=== PATIENT | female | born 1995 | race African-American/Black ===

== ENCOUNTER 2017-02-26 22:07 | Emergency (ER) | payer MEDICAID ==
[2017-02-26] MEDS ORDERED: ACETAMINOPHEN 325 MG TABLET PO ONE (23:21)
[2017-02-26] MEDS ORDERED: MAGNESIUM OXIDE 400 MG TABLET PO ONE (23:21)
--- NOTE | 2017-02-26 23:30 | ER Document Report ---
HPI - HPI Pain Level: 5 Context: Patient is a 21 year old female who is 10 weeks presents with migraine headache since this afternoon. She states she has not taken anything for her migraine, denies light/sound sensitivity, n/v. Toelrating PO. H/o migraines previously on maxalt but stopped following with her neurologist. Denies any trauma or fall - REPRODUCTIVE Reproductive: DENIES: : Past Medical History - Social History Smoking Status: Never Smoker Chew tobacco use (# tins/day): No Frequency of alcohol use: None Drug Abuse: None Family History: CAD, CVA, DM, Hyperlipidemia, Hypertension, Malignancy Patient has suicidal ideation: No Patient has homicidal ideation: No - Past Medical History Cardiac Medical History: Reports: Hx Hypercholesterolemia Pulmonary Medical History: Reports: Hx Asthma, Hx Bronchitis, Hx Pneumonia Neurological Medical History: Reports: Hx Migraine Renal/ Medical History: Denies: Hx Peritoneal Dialysis Past Surgical History: Reports: Hx Tonsillectomy - Immunizations Immunizations up to date: Yes Hx Diphtheria, Pertussis, Tetanus Vaccination: Yes Vertical Provider Document - CONSTITUTIONAL Notes: PHYSICAL EXAM GENERAL: Alert, interacts well. HEAD: Normocephalic, atraumatic. EYES: Pupils equal, round, and reactive to light. Extraocular movements intact. ENT: Oral mucosa moist, tongue midline. NECK: Full range of motion. Supple. Trachea midline. LUNGS: Clear to auscultation bilaterally, no wheezes, rales, or rhonchi. No respiratory distress. HEART: Regular rate and rhythm. No murmurs, gallops, or rubs. EXTREMITIES: Moves all 4 extremities spontaneously. No edema, radial and dorsalis pedis pulses 2/4 bilaterally. No cyanosis. NEUROLOGICAL: Alert and oriented x4. Normal speech. PSYCH: Normal affect, normal mood. SKIN: Warm, dry, normal turgor. No rashes or lesions noted. - INFECTION CONTROL TRAVEL OUTSIDE OF THE [place] IN LAST 30 DAYS: No - RESPIRATORY O2 Sat by Pulse Oximetry: 99 Course - Re-evaluation Re-evalutation: 02/27/17 00:21 Patient does not have any focal neurologic deficits, nuchal rigidity, vital signs are within normal limits no papilledema. Patient is otherwise no acute distress and hemodynamically stable. Low index for suspicion of acute subarachnoid hemorrhage, meningitis or mass. Low suspicion for acute life- threatening etiology with intact neuro exam therefore no additional imaging or laboratory testing is indicated. Will medicate patient with Tylenol. 02/27/17 01:05 Patient states that her headache does not feel much better. Requesting something stronger. Discussed with patient the classes of Fioricet and codeine. Patient asking for Fioricet. 02/27/17 01:20 Patient at this time stating that she wants to go home. Upon reexamination she stating that she feels fine. At this time she is declining to take any prescriptions home with her since she will be limited to taking them 4-5 times a month based on the class. Will discharge patient home with strict follow-up with PCP for blood pressure check within the next week. - Vital Signs Vital signs: Temp Pulse Resp BP Pulse Ox 98.4 F 97 18 141/78 H 99 02/26/17 22:12 02/26/17 22:12 02/26/17 22:12 02/26/17 22:12 02/26/17 22:12 Discharge - Discharge Clinical Impression: Headache Qualifiers: Headache type: unspecified Headache chronicity pattern: acute headache Intractability: not intractable Qualified Code(s): R51 - Headache Condition: Good Disposition: HOME, SELF-CARE Additional Instructions: HEADACHE: The physician does not feel that the headache you are experiencing has a serious underlying cause. Most headaches are due to emotional stress, with resultant muscle tension (tension headache). Occasionally, headaches are secondary to changes in the blood vessels of the scalp (vascular headache and migraine headache). Sometimes, a headache is the first symptom of another developing illness, such as a viral infection. You have no evidence of stroke, bleeding, meningitis, or other serious cause of your headache. The treatment of headaches varies with the severity and cause of the pain. Not all headaches need pain shots. In fact, there is evidence that using narcotics for headaches may make them worse in the long run. The physician will determine the therapy that's in your best interest. If you develop a fever, if the headache is different from any you've previously experienced, or if the headache progressively worsens, then call your physician at once or go to the emergency room. FOLLOW-UP CARE: If you have been referred to a physician for follow-up care, call the physician s office for an appointment as you were instructed or within the next two days. If you experience worsening or a significant change in your symptoms, notify the physician immediately or return to the Emergency Department at any time for re-evaluation. Referrals: KEVIN SALDIVAR MD [[facility]] - Follow up in 3-5 days
[2017-02-27] MEDS ORDERED: BUTALB/ACETAMINOPHEN/CAFFEINE 1 TAB EACH PO ONE (00:20)
[2017-02-27 01:21] VITALS: BP 129/88
== END 2017-02-27 01:11 | disposition home or self-care (01) ==
LOC: ER 22:07
DX: O99.351 Diseases of the nervous system complicating pregnancy, first trimester (principal); G43.909 Migraine, unspecified, not intractable, without status migrainosus; O99.511 Diseases of the respiratory system complicating pregnancy, first trimester; J45.909 Unspecified asthma, uncomplicated; Z3A.10 10 weeks gestation of pregnancy
CPT/HCPCS: 99283; J3490 ×3

== ENCOUNTER 2017-03-15 22:20 | Emergency (ER) | payer MEDICAID ==
[2017-03-15] MEDS ORDERED: METOCLOPRAMIDE HCL 10 MG TABLET PO ONE (23:50)
[2017-03-15] MEDS ORDERED: ACETAMINOPHEN 325 MG TABLET PO ONE (23:50)
[2017-03-15] MEDS ORDERED: LORATADINE 10 MG TABLET PO ONE (23:50)
[2017-03-16 00:30] LABS: AMORPHOUS SEDIMENT,URINE TRACE /HPF; BILIRUBIN,URINE NEGATIVE (NEGATIVE); GLUCOSE, URINE NEGATIVE (NEGATIVE); KETONES,URINE 20 mg/dL (NEGATIVE); LEUKOCYTE ESTERASE,URINE NEGATIVE (NEGATIVE); NITRITE,URINE NEGATIVE (NEGATIVE); PROTEIN,URINE NEGATIVE (NEGATIVE); URINE SPECIFIC GRAVITY 1.023; UROBILINOGEN,URINE NEGATIVE mg/dL (<2.0)
[2017-03-16 00:31] LABS: APPEARANCE,URINE CLEAR
--- NOTE | 2017-03-16 00:40 | ER Document Report ---
ED General - General Chief Complaint: Dizziness Stated Complaint: BLOOD PRESSURE PROBLEM Time Seen by Provider: 03/15/17 23:38 Mode of Arrival: Ambulatory Information source: Patient Notes: 21-year-old female presents to ED for high blood pressure at home and she is 13 weeks. Blood pressure is 128/68 emergency room. Patient complaining of dizziness nausea and vomiting. She also has congestion. Patient states she had not had any nausea for the least a week and now she was nauseated today. TRAVEL OUTSIDE OF THE [place] IN LAST 30 DAYS: No - HPI Onset: This morning Onset/Duration: Intermittent Quality of pain: No pain Severity: None Pain Level: Denies Associated symptoms: Nausea, Vomiting, Other - Dizziness and elevated blood pressure at home blood pressure is normal in the emergency room Exacerbated by: Denies Relieved by: Denies Similar symptoms previously: Yes Recently seen / treated by doctor: Yes - Related Data Allergies/Adverse Reactions: amoxicillin trihydrate [From Augmentin] Allergy (Verified 03/15/17 22:57) Potassium Clavulanate * [From Augmentin] Allergy (Verified 03/15/17 22:57) Home Medications: Current Home Medications Prenat 115/Iron Fum/Folic/Dss [ 19 Tablet] 1 each PO DAILY 03/15/17 [ History] Past Medical History - General Information source: Patient - Social History Smoking Status: Never Smoker Cigarette use (# per day): No Chew tobacco use (# tins/day): No Smoking Education Provided: No Lives with: Family Family History: CAD, CVA, DM, Hyperlipidemia, Hypertension, Malignancy Patient has suicidal ideation: No Patient has homicidal ideation: No - Past Medical History Cardiac Medical History: Reports: Hx Hypercholesterolemia Pulmonary Medical History: Reports: Hx Asthma, Hx Bronchitis, Hx Pneumonia Neurological Medical History: Reports: Hx Migraine Endocrine Medical History: Reports: None Renal/ Medical History: Reports: None Malignancy Medical History: Reports: None GI Medical History: Reports: None Musculoskeltal Medical History: Reports None Skin Medical History: Reports None Psychiatric Medical History: Reports: None Traumatic Medical History: Reports: None Infectious Medical History: Reports: None Past Surgical History: Reports: Hx Adenoidectomy, Hx Tonsillectomy - Immunizations Immunizations up to date: Yes Hx Diphtheria, Pertussis, Tetanus Vaccination: Yes Review of Systems - Review of Systems Constitutional: Recent illness EENT: Nose discharge Cardiovascular: Dizziness, Other - Patient states that she had elevated blood pressure at home Respiratory: No symptoms reported Gastrointestinal: Nausea, Vomiting Genitourinary: No symptoms reported Female Genitourinary: Musculoskeletal: No symptoms reported Skin: No symptoms reported Hematologic/Lymphatic: No symptoms reported Neurological/Psychological: No symptoms reported -: Yes All other systems reviewed and negative Physical Exam - Vital signs Vitals: Temp Pulse Resp BP Pulse Ox 98.6 F 85 16 128/68 H 99 03/15/17 22:59 03/15/17 22:59 03/15/17 22:59 03/15/17 22:59 03/15/17 22:59 Interpretation: Normal - General General appearance: Appears well, Alert - HEENT Head: Normocephalic, Atraumatic Eyes: Normal Pupils: PERRL Ears: Normal External canal: Normal Tympanic membrane: Normal Sinus: Normal Nasal: Swelling, Clear rhinorrhea Mouth/Lips: Normal Pharynx: Post nasal drainage Neck: Normal - Respiratory Respiratory status: No respiratory distress Chest status: Nontender Breath sounds: Normal. No: Rales, Rhonchi, Stridor, Wheezing Chest palpation: Normal - Cardiovascular Rhythm: Regular Heart sounds: Normal auscultation Murmur: No - Abdominal Inspection: Gravid female Distension: No distension Bowel sounds: Normal Tenderness: Nontender Organomegaly: No organomegaly - Back Back: Normal, Nontender - Extremities General upper extremity: Normal inspection, Nontender, Normal color, Normal ROM , Normal temperature General lower extremity: Normal inspection, Nontender, Normal color, Normal ROM , Normal temperature, Normal weight bearing. No: Rhona's sign - Neurological Neuro grossly intact: Yes Cognition: Normal Orientation: AAOx4 [place] Coma Scale Eye Opening: Spontaneous [place] Coma Scale Verbal: Oriented [place] Coma Scale Motor: Obeys Commands [place] Coma Scale Total: 15 Speech: Normal Motor strength normal: LUE, RUE, LLE, RLE Sensory: Normal - Psychological Associated symptoms: Normal affect, Normal mood - Skin Skin Temperature: Warm Skin Moisture: Dry Skin Color: Normal Course - Re-evaluation Re-evalutation: 03/16/17 01:07 Patient treated with Claritin Tylenol and Reglan for her cough and cold symptoms and nausea and vomiting with . Patient was given instructions concerning what she can and cannot take for a cold while . She is given a prescription for Reglan for her nausea during . Patient encouraged to increase her fluid intake and to follow-up with her OB/ REMEDIATION PROJECT ENGINEER by telephone on Saturday to schedule a follow-up appointment. - Vital Signs Vital signs: Temp Pulse Resp BP Pulse Ox 98.5 F 84 20 116/65 99 03/16/17 00:45 03/16/17 00:45 03/16/17 00:45 03/16/17 00:45 03/16/17 00:45 - Laboratory Laboratory results interpreted by me: 03/16/17 00:06 Urine Ketones 20 H Discharge - Discharge Clinical Impression: Nausea/vomiting in URI (upper respiratory infection) Qualifiers: URI type: unspecified URI Qualified Code(s): J06.9 - Acute upper respiratory infection, unspecified Condition: Stable Disposition: HOME, SELF-CARE Additional Instructions: UPPER RESPIRATORY ILLNESS: You have a viral infection of the respiratory passages -- a "cold." This common infection causes nasal congestion, drainage, and often sore throat and cough. It is highly contagious. The disease usually lasts about 10 to 14 days. There is no "cure" for the viral infection -- it must run its course. If there is a complication, such as bacterial infection in the nose, sinuses, middle ear, or bronchial tubes, antibiotics may be required. The antibiotics won't affect the virus. Drink plenty of fluids. A humidifier may help. An expectorant medication or decongestant may make you more comfortable. Use acetaminophen or ibuprofen for fever or aches. See the doctor if fever persists over two days, if there is any significant worsening of your symptoms, or if you simply fail to improve as expected. The only cold medicine she can take in are Benadryl or Claritin and Tylenol. Please use saline nasal spray to your nose to help remove the drainage. You can use Reglan for your nausea during . You were given a dose of Claritin Tylenol and Reglan in the emergency room for your symptoms. Your blood pressure is not concerning at this time. Your urine was clean but a little dehydrated you need to drink more water. Please call your DATA REPORTING ANALYST on Saturday to schedule a follow-up visit. Reglan (Metoclopramide) Reglan has been prescribed. This medicine affects the stomach and intestines. It can be used to treat nausea and vomiting, to prevent reflux of stomach acid up into the esophagus, or to increase the contractions of the stomach and intestines. It is often prescribed for esophagitis, and for paralysis of the stomach in diabetics. Reglan can cause either mild restlessness or drowsiness. You should contact the doctor at once if you become extremely restless, anxious, or cannot sleep, or if you develop uncontrollable motions of the lips, tongue, or jaw. Do not take alcohol with this medicine. Do not drive or operate machinery until you have been taking this medicine long enough to know how it affects you. Call the doctor if you develop abdominal pains, lightheadedness, black stool, or blood in the stool or vomitus. USE OF ACETAMINOPHEN (Tylenol): Acetaminophen may be taken for pain relief or fever control. It's much safer than aspirin, offering a wider range of "safe" dosages. It is safe during . Some brand names are Tylenol, Panadol, Datril, Anacin 3, Tempra, and Liquiprin. Acetaminophen can be repeated every four hours. The following are maximum recommended dosages: >89 pounds or adults 650 mg to 900 mg Acetaminophen can be repeated every four hours. Maximum dose not to exceed 4000 mg a day. FOLLOW-UP CARE: If you have been referred to a physician for follow-up care, call the physician s office for an appointment as you were instructed or within the next two days. If you experience worsening or a significant change in your symptoms, notify the physician immediately or return to the Emergency Department at any time for re-evaluation. Prescriptions: Metoclopramide HCl [Reglan 10 mg Tablet] 10 mg PO Q6HP PRN #20 tablet PRN Reason:
[2017-03-16 00:49] VITALS: BP 116/65
== END 2017-03-16 00:48 | disposition home or self-care (01) ==
LOC: ER 22:20
DX: O21.9 Vomiting of pregnancy, unspecified (principal); R42 Dizziness and giddiness; J06.9 Acute upper respiratory infection, unspecified; R03.0 Elevated blood-pressure reading, without diagnosis of hypertension; Z3A.13 13 weeks gestation of pregnancy; Z88.0 Allergy status to penicillin
CPT/HCPCS: 99284; 81001; J3490 ×3

== ENCOUNTER 2017-05-06 16:40 | Emergency (ER) | payer MEDICAID ==
[2017-05-06 17:01] VITALS: BP 131/63
[2017-05-06] MEDS ORDERED: ONDANSETRON 4 MG TAB.RAPDIS PO ONE (17:26)
--- NOTE | 2017-05-06 17:27 | ER Document Report ---
ED Medical Screen (RME) - General Chief Complaint: Abdominal Pain Stated Complaint: STOMACH PAIN Time Seen by Provider: 05/06/17 17:22 Notes: 21-year-old female patient is 20 weeks . She reports onset about 1230 day of nausea and vomited up all her lunch. She also reports onset of pain across the lower half of her abdomen. She states she feels the need to have bowel movements but when she tries very little to nothing will come out. She does have an appointment with her ELECTROTYPER doctors at [facility] tomorrow. I have greeted and performed a rapid initial assessment of this patient. A comprehensive ED assessment and evaluation of the patient, analysis of test results and completion of the medical decision making process will be conducted by additional ED providers. TRAVEL OUTSIDE OF THE [place] IN LAST 30 DAYS: No - Related Data Allergies/Adverse Reactions: amoxicillin trihydrate [From Augmentin] Allergy (Verified 05/06/17 17:14) Potassium Clavulanate * [From Augmentin] Allergy (Verified 05/06/17 17:14) Past Medical History - Social History Chew tobacco use (# tins/day): No Frequency of alcohol use: None Drug Abuse: None - Past Medical History Cardiac Medical History: Reports: Hx Hypercholesterolemia Pulmonary Medical History: Reports: Hx Asthma, Hx Bronchitis, Hx Pneumonia Neurological Medical History: Reports: Hx Migraine Renal/ Medical History: Denies: Hx Peritoneal Dialysis Past Surgical History: Reports: Hx Adenoidectomy, Hx Tonsillectomy - Immunizations Immunizations up to date: Yes Hx Diphtheria, Pertussis, Tetanus Vaccination: Yes Physical Exam - Vital signs Vitals: Temp Pulse Resp BP Pulse Ox 99.2 F 84 16 131/63 H 100 05/06/17 17:00 05/06/17 17:00 05/06/17 17:00 05/06/17 17:00 05/06/17 17:00 Course - Vital Signs Vital signs: Temp Pulse Resp BP Pulse Ox 99.2 F 84 16 131/63 H 100 05/06/17 17:00 05/06/17 17:00 05/06/17 17:00 05/06/17 17:00 05/06/17 17:00
[2017-05-06 18:14] LABS: ABSOLUTE EOSINOPHILS # (AUTO) 0.3 10^3/uL (0.0-0.6); ABSOLUTE LYMPHOCYTES (AUTO) 1.8 10^3/uL (0.5-4.7); ABSOLUTE MONOCYTES (AUTO) 0.7 10^3/uL (0.1-1.4); ABSOLUTE NEUT (AUTO) 7.4 10^3/uL (1.7-8.2); AMORPHOUS SEDIMENT,URINE TRACE /HPF; APPEARANCE,URINE CLOUDY; BASOPHILS % (AUTO) 0.4 % (0-2); BILIRUBIN,URINE NEGATIVE (NEGATIVE); COLOR,URINE YELLOW; EOSINOPHILS % (AUTO) 2.9 % (0-6); GLUCOSE, URINE NEGATIVE (NEGATIVE); HEMOGLOBIN 13.2 g/dL (12.0-15.5); KETONES,URINE 20 mg/dL (NEGATIVE); LEUKOCYTE ESTERASE,URINE NEGATIVE (NEGATIVE); LYMPHOCYTES % (AUTO) 17.6 % (13-45); MEAN CORPUSCULAR HEMOGLOBIN 29.8 pg (27.0-33.4); MEAN CORPUSCULAR HGB CONC 33.8 g/dL (32.0-36.0); MEAN CORPUSCULAR VOLUME 88 fl (80-97); NITRITE,URINE NEGATIVE (NEGATIVE); PLATELET COUNT 249 10^3/uL (150-450); PROTEIN,URINE NEGATIVE (NEGATIVE); RED BLOOD COUNT 4.43 10^6/uL (3.72-5.28); SEGMENTED NEUTROPHILS % (AUTO) 72.1 % (42-78); TOTAL CELLS COUNTED % (AUTO) 100 %; URINE SPECIFIC GRAVITY 1.025; UROBILINOGEN,URINE NEGATIVE mg/dL (<2.0); WHITE BLOOD COUNT 10.3 10^3/uL (4.0-10.5)
[2017-05-06 18:22] LABS: ALANINE AMINOTRANSFERASE 31 U/L (9-52); ALBUMIN 4.2 g/dL (3.5-5.0); ALKALINE PHOSPHATASE 60 U/L (38-126); ANION GAP 9 (5-19); ASPARTATE AMINO TRANSFERASE 19 U/L (14-36); BILIRUBIN,DIRECT 0.2 mg/dL (0.0-0.4); BILIRUBIN,TOTAL 0.8 mg/dL (0.2-1.3); BLOOD UREA NITROGEN 5 mg/dL (7-20); CALCIUM 10.3 mg/dL (8.4-10.2); CARBON DIOXIDE 26 mmol/L (22-30); CHLORIDE 102 mmol/L (98-107); GLUCOSE 70 mg/dL (75-110); POTASSIUM 4.2 mmol/L (3.6-5.0); SODIUM 137.2 mmol/L (137-145); TOTAL PROTEIN 6.9 g/dL (6.3-8.2)
--- NOTE | 2017-05-06 19:33 | ER Document Report ---
ED General - General Chief Complaint: Abdominal Pain Stated Complaint: STOMACH PAIN Time Seen by Provider: 05/06/17 17:22 TRAVEL OUTSIDE OF THE [place] IN LAST 30 DAYS: No - HPI Notes: Patient is a 21-year-old female who is approximately 20 weeks who presents to the ED after having an episode of vomiting an hour after eating her lunch today around 1230. Patient states that she did have abdominal "tightness, " but no sharp pain. Patient states that she also feels constipated. Patient states that she did have one small bowel movement this morning that was hard and difficult to push out. Patient states that since her arrival she feels much better and currently does not have any concern or complaint. Patient states that she does have an appointment tomorrow with her NIPPLE MACHINE OPERATOR. Patient states that she does have associated nasal congestion/discharge over the last couple days without fever or body ache. Denies any vaginal odor/discharge/ bleeding. Denies any headache, fever, neck pain, sore throat, chest pain, palpitations, syncope, cough, shortness of breath, wheeze, dyspnea, diarrhea, urinary retention, dysuria, hematuria, loss of control of bowel or bladder, numbness/tingling, saddle anesthesia, muscle paralysis/weakness, or rash. - Related Data Allergies/Adverse Reactions: amoxicillin trihydrate [From Augmentin] Allergy (Verified 05/06/17 17:14) Potassium Clavulanate * [From Augmentin] Allergy (Verified 05/06/17 17:14) Past Medical History - Social History Smoking Status: Unknown if Ever Smoked Chew tobacco use (# tins/day): No Frequency of alcohol use: None Drug Abuse: None Family History: CAD, CVA, DM, Hyperlipidemia, Hypertension, Malignancy Patient has suicidal ideation: No Patient has homicidal ideation: No - Past Medical History Cardiac Medical History: Reports: Hx Hypercholesterolemia Pulmonary Medical History: Reports: Hx Asthma, Hx Bronchitis, Hx Pneumonia Neurological Medical History: Reports: Hx Migraine Renal/ Medical History: Denies: Hx Peritoneal Dialysis Past Surgical History: Reports: Hx Adenoidectomy, Hx Tonsillectomy - Immunizations Immunizations up to date: Yes Hx Diphtheria, Pertussis, Tetanus Vaccination: Yes Review of Systems - Review of Systems Notes: REVIEW OF SYSTEMS: CONSTITUTIONAL : Denies fever, chills, or sweats. Denies recent illness. EENT: Denies eye, ear, throat, or mouth pain or symptoms. Denies nasal or sinus congestion or discharge. Denies throat, tongue, or mouth swelling or difficulty swallowing. CARDIOVASCULAR: Denies chest pain. Denies palpitations or racing or irregular heart beat. Denies ankle edema. RESPIRATORY: Denies cough, cold, or chest congestion. Denies shortness of breath, difficulty breathing, or wheezing. GASTROINTESTINAL: see hpi GENITOURINARY: Denies difficulty urinating, painful urination, burning, frequency, blood in urine, or discharge. FEMALE GENITOURINARY: Denies vaginal bleeding, heavy or abnormal periods, irregular periods. Denies vaginal discharge or odor. MUSCULOSKELETAL: Denies back or neck pain or stiffness. Denies joint pain or swelling. SKIN: Denies rash, lesions or sores. NEUROLOGICAL: Denies passing out or loss of consciousness. Denies dizziness or lightheadedness. Denies headache. Denies problems with gait or speech. Denies sensory loss, numbness, or tingling. Denies seizures. ALL OTHER SYSTEMS REVIEWED AND NEGATIVE. Dictation was performed using [employer] voice recognition software Physical Exam - Vital signs Vitals: Temp Pulse Resp BP Pulse Ox 99.2 F 84 16 131/63 H 100 05/06/17 17:00 05/06/17 17:00 05/06/17 17:00 05/06/17 17:00 05/06/17 17:00 Notes: PHYSICAL EXAMINATION: GENERAL: Well-appearing, well-nourished and in no acute distress. A&Ox4 HEAD: Atraumatic, normocephalic. EYES: Pupils equal round and reactive to light, extraocular movements intact, sclera anicteric, conjunctiva are normal. ENT: EAC clear b/l. TM's intact b/l without erythema, fluid, or perforation. Nares patent and with clear discharge. oropharynx clear without exudates. No tonsilar hypertrophy or erythema. Moist mucous membranes. No sinus tenderness. NECK: Normal range of motion, supple without lymphadenopathy LUNGS: Breath sounds clear to auscultation bilaterally and equal. No wheezes rales or rhonchi. HEART: Regular rate and rhythm without murmurs, rubs, gallops. ABDOMEN: Soft, nontender throughout, nondistended abdomen. No guarding, no rebound. No masses appreciated. Normal bowel sounds present. No CVA tenderness bilaterally. : deferred Extremities: No cyanosis, clubbing, or edema b/l. Peripheral pulses 2+. Capillary refill less than 3 seconds. NEUROLOGICAL: Cranial nerves grossly intact. Normal speech, normal gait. Normal sensory, motor exams PSYCH: Normal mood, normal affect. SKIN: Warm, Dry, normal turgor, no rashes or lesions noted. Course - Re-evaluation Re-evalutation: 05/06/17 20:05 Patient is an afebrile, well-hydrated, 21-year-old female who presents the ED with one previous episode of vomiting and resolved abdominal discomfort as well as suspected constipation. Vitals are stable. PE is otherwise unremarkable. Patient also has an incidental associated URI, suspect viral at this time. CBC , CMP, urinalysis unremarkable for any acute pathology. Patient is tolerating p.o. and states that she is feeling well and is ready to go home. Low suspicion /risk for acute appendicitis, bowel obstruction, acute cholecystitis, acute cholangitis, perforated diverticulitis, incarcerated hernia, pancreatitis, perforated ulcer, peritonitis, sepsis, pelvic inflammatory disease, ectopic , tubo-ovarian abscess, ovarian torsion, or other systemic emergent condition at this time. Patient is aware that her condition can change from initial presentation and she needs to monitor symptoms closely and seek medical attention if any acute changes. Conservative measures otherwise for symptoms. Keep your scheduled appointment with NIPPLE MACHINE OPERATOR tomorrow. Recheck with your PCM in 3-5 days. Consider consult with a director of surgery. Return to the ED with any worsening/concerning symptoms otherwise as reviewed in discharge. Patient is in agreement. - Vital Signs Vital signs: Temp Pulse Resp BP Pulse Ox 99.2 F 84 16 131/63 H 100 05/06/17 17:00 05/06/17 17:00 05/06/17 17:00 05/06/17 17:00 05/06/17 17:00 - Laboratory Result Diagrams: 05/06/17 17:40 05/06/17 17:40 Laboratory results interpreted by me: 05/06/17 05/06/17 05/06/17 17:40 17:40 17:40 RDW 15.0 H BUN 5 L Glucose 70 L Calcium 10.3 H Urine Ketones 20 H Urine Ascorbic Acid 40 H Discharge - Discharge Clinical Impression: Viral illness Constipation Qualifiers: Constipation type: unspecified constipation type Qualified Code(s): K59.00 - Constipation, unspecified Condition: Stable Disposition: HOME, SELF-CARE Instructions: Viral Syndrome ([facility]), Upper Respiratory Illness ([facility]) Additional Instructions: Maintain adequate fluid and food intake Increase fiber and water in diet. [place]ille diet ([employer] Bananas, rice, apples, toast, etc Zofran as needed tylenol if needed Monitor for any worsening symptoms OTC cold medications as needed Make sure you are staying hydrated enough to urinate and have normal BM's Recheck with your PCM in 3-5 days [facility]* Consider consult with Gastroenterology for ongoing/worsening symptoms Return to the ED with any worsening symptoms and/or development of fever, headache, chest pain, palpitations, syncope, shortness of breath, trouble breathing, abdominal pain, n/v/d, blood in stool/urine, weakness, vaginal bleeding, pelvic cramping, or other worsening symptoms that are concerning to you. Prescriptions: Ondansetron [Zofran Odt 4 mg Tablet] 1 - 2 tab PO Q4H PRN #15 tab.rapdis PRN Reason: For Nausea/Vomiting Forms: Elevated Blood Pressure [facility] [Provider Group[facility] - Follow up tomorrow
== END 2017-05-06 20:26 | disposition home or self-care (01) ==
LOC: ER 16:40
DX: O21.9 Vomiting of pregnancy, unspecified (principal); O99.619 Diseases of the digestive system complicating pregnancy, unspecified trimester; K59.00 Constipation, unspecified; O98.519 Other viral diseases complicating pregnancy, unspecified trimester; O26.899 Other specified pregnancy related conditions, unspecified trimester; J06.9 Acute upper respiratory infection, unspecified; J45.909 Unspecified asthma, uncomplicated; Z3A.00 Weeks of gestation of pregnancy not specified; Z88.0 Allergy status to penicillin
CPT/HCPCS: 99284; 36415; 85025; 80053; 81001; S0119

== ENCOUNTER 2017-06-19 06:50 | Emergency (ER) | payer MEDICAID ==
[2017-06-19 07:05] VITALS: BP 139/68
--- NOTE | 2017-06-19 08:34 | ER Document Report ---
HPI - HPI Pain Level: 3 Notes: Patient is a 21-year-old female who is approximately 26 weeks who presents to the ED complaining of nasal congestion/discharge and a cough 1 month. Patient states that over the last day she started having fever and body ache as well as increased nasal congestion and discharge. Patient has been exposed to the flu. She is otherwise eating and drinking without any difficulties. She is urinating normally having normal bowel movements. She denies any significant past medical history. Patient states an allergy to Augmentin. She denies any smoking or IV drug use. Patient states that she is ambulatory without any dyspnea on exertion or chest pains. Patient has not had any vaginal discharge, odor, bleeding, or cramping. Denies any headache, neck pain, sore throat, chest pain, palpitations, syncope, shortness of breath, wheeze, dyspnea, abdominal pain, nausea/vomiting/diarrhea, urinary retention, dysuria, hematuria, or rash. - ROS Systems Reviewed and Negative: Yes All other systems reviewed and negative - CONSTITUTIONAL Constitutional: REPORTS: Fever, Chills - NEURO Neurology: REPORTS: Headache - CARDIOVASCULAR Cardiovascular: DENIES: Chest pain - RESPIRATORY Respiratory: REPORTS: Coughing. DENIES: Trouble Breathing - GASTROINTESTINAL Gastrointestinal: DENIES: Abdominal Pain, Black / Bloody Stools - REPRODUCTIVE Reproductive: REPORTS: :. DENIES: Postmenopausal, Abnormal bleeding / discharge Past Medical History - Social History Smoking Status: Never Smoker Frequency of alcohol use: None Drug Abuse: None Family History: CAD, CVA, DM, Hyperlipidemia, Hypertension, Malignancy Patient has suicidal ideation: No Patient has homicidal ideation: No - Past Medical History Cardiac Medical History: Reports: Hx Hypercholesterolemia Pulmonary Medical History: Reports: Hx Asthma, Hx Bronchitis, Hx Pneumonia Neurological Medical History: Reports: Hx Migraine Renal/ Medical History: Denies: Hx Peritoneal Dialysis Past Surgical History: Reports: Hx Adenoidectomy, Hx Tonsillectomy - Immunizations Immunizations up to date: Yes Hx Diphtheria, Pertussis, Tetanus Vaccination: Yes Vertical Provider Document - CONSTITUTIONAL Agree With Documented VS: Yes Notes: PHYSICAL EXAMINATION: GENERAL: Well-appearing, well-nourished and in no acute distress. A&Ox4. Answers questions appropriately. Moves comfortably w/o notable distress HEAD: Atraumatic, normocephalic. EYES: Pupils equal round and reactive to light, extraocular movements intact, sclera anicteric, conjunctiva are normal. ENT: EAC clear b/l. TM's intact b/l without erythema, fluid, or perforation. Nares patent and with clear discharge. oropharynx no erythema without exudates. No tonsilar hypertrophy without erythema or exudate. No palatine shift. Uvula midline. No tongue protrusion. No drooling, hoarseness, or airway compromise. Moist mucous membranes. No sinus tenderness. NECK: Normal range of motion, supple without lymphadenopathy. No rigidity/ meningismus. LUNGS: Breath sounds clear to auscultation bilaterally and equal. No wheezes rales or rhonchi. No retractions HEART: Regular rate and rhythm without murmurs, rubs, gallops. ABDOMEN: Soft, nontender, nondistended abdomen. No guarding, no rebound. No masses appreciated. Normal bowel sounds present. No CVA tenderness bilaterally. NEUROLOGICAL: Normal speech, normal gait. Normal sensory, motor exams PSYCH: Normal mood, normal affect. SKIN: Warm, Dry, normal turgor, no rashes or lesions noted. - INFECTION CONTROL TRAVEL OUTSIDE OF THE [place] IN LAST 30 DAYS: No - RESPIRATORY O2 Sat by Pulse Oximetry: 97 Course - Re-evaluation Re-evalutation: 06/19/17 09:40 Patient is an afebrile, well-hydrated, 21-year-old female who presents to the ED with acute URI, suspect influenza. Vitals are stable. PE is otherwise unremarkable. X-ray was unremarkable for any acute pathology. No other labs or imaging warranted at this time based on H&P. Patient has no significant cardiopulmonary or immunocompromised medical conditions aside from being . Patient's lungs are clear to auscultation bilaterally without tachycardia, hypoxia, or tachypnea. Patient is tolerating p.o. without any difficulties. I will send her home with a prescription for Tamiflu to take as directed. Risks, benefits, and side effects thoroughly reviewed. Low suspicion for any meningitis, sepsis, peritonsillar/pharyngeal abscess, respiratory compromise, severe dehydration, or other emergent systemic condition at this time. Patient is aware this condition can change from initial presentation and she needs to monitor symptoms closely. Conservative measures otherwise for symptoms. Recheck with your PCM in 3-5 days. Return to the ED with any worsening/concerning symptoms otherwise as reviewed in discharge. Patient is in agreement. - Vital Signs Vital signs: Temp Pulse Resp BP Pulse Ox 99.2 F 115 H 18 139/68 H 97 06/19/17 06:50 06/19/17 06:50 06/19/17 06:50 06/19/17 06:50 06/19/17 06:50 Discharge - Discharge Clinical Impression: Acute URI, Influenza Condition: Stable Disposition: HOME, SELF-CARE Instructions: Influenza ([facility]), Upper Respiratory Illness ([facility]) Additional Instructions: Maintain adequate fluid intake Take meds as directed tylenol as needed Humidified air may help Wash your hands regularly Wear a mask when coughing F/u: with your PCM in 3-5 days for a recheck Return to the ED with any fever, worsening pain, chest pain, palpitations, syncope, worsening JESUS, neck pain/stiffness, shortness of breath, wheezing, drooling, trouble swallowing/breathing, abdominal pain, n/v/d, rash, or worsening/concerning symptoms otherwise. Prescriptions: Oseltamivir Phosphate [Tamiflu 75 mg Capsule] 75 mg PO BID #10 capsule Referrals: [facility] [Provider Group] - Follow up as needed [facility] [Provider Group] - Follow up as needed [facility] [Provider Group] - Follow up as needed
--- NOTE | 2017-06-19 09:18 | RADIOLOGY REPORT (SQ) ---
EXAM DESCRIPTION: CHEST PA/LAT COMPLETED DATE/TIME: 06/19/2017 8:57 am REASON FOR STUDY: cough COMPARISON: None. EXAM PARAMETERS: NUMBER OF VIEWS: two views TECHNIQUE: Digital Frontal and Lateral radiographic views of the chest acquired. RADIATION DOSE: NA LIMITATIONS: none FINDINGS: LUNGS AND PLEURA: No opacities, masses or pneumothorax. No pleural effusion. MEDIASTINUM AND HILAR STRUCTURES: No masses or contour abnormalities. HEART AND VASCULAR STRUCTURES: Heart normal size. No evidence for failure. BONES: No acute findings. HARDWARE: None in the chest. OTHER: No other significant finding. IMPRESSION: NO SIGNIFICANT RADIOGRAPHIC FINDING IN THE CHEST. TECHNICAL DOCUMENTATION: JOB ID: [id number] [employer]- All Rights Reserved
== END 2017-06-19 10:34 | disposition home or self-care (01) ==
LOC: ER 06:50
DX: O26.892 Other specified pregnancy related conditions, second trimester (principal); J11.1 Influenza due to unidentified influenza virus with other respiratory manifestations; Z3A.26 26 weeks gestation of pregnancy
CPT/HCPCS: 71046; 99283

== ENCOUNTER 2017-06-19 17:01 | Emergency (ER) | payer MEDICAID ==
[2017-06-19] MEDS ORDERED: NORMAL SALINE 1000 ML 2,000 ML IV ONE (17:07)
--- NOTE | 2017-06-19 17:22 | ER Document Report ---
ED General - General Stated Complaint: ACCELERATED HEART RATE Time Seen by Provider: 06/19/17 17:07 Mode of Arrival: Ambulatory Information source: Patient TRAVEL OUTSIDE OF THE [place] IN LAST 30 DAYS: No - HPI Onset: This morning Onset/Duration: Sudden Quality of pain: Achy, Dull Severity: Mild Associated symptoms: Fever, Other - PALPITATIONS, LIGHT-HEADED Exacerbated by: Denies Relieved by: Denies Similar symptoms previously: Yes - NOT RECENT Recently seen / treated by doctor: Yes - KEATON Villa THIS A.M., NEG W/U, Rx TAMIFLU - Related Data Allergies/Adverse Reactions: amoxicillin trihydrate [From Augmentin] Allergy (Verified 05/06/17 17:14) Potassium Clavulanate * [From Augmentin] Allergy (Verified 05/06/17 17:14) Past Medical History - General Information source: Patient - Social History Smoking Status: Unknown if Ever Smoked Cigarette use (# per day): No Chew tobacco use (# tins/day): No Frequency of alcohol use: None Drug Abuse: None Lives with: Family Family History: CAD, CVA, DM, Hyperlipidemia, Hypertension, Malignancy Patient has suicidal ideation: No Patient has homicidal ideation: No - Past Medical History Cardiac Medical History: Reports: Hx Hypercholesterolemia Pulmonary Medical History: Reports: Hx Asthma, Hx Bronchitis, Hx Pneumonia Neurological Medical History: Reports: Hx Migraine Renal/ Medical History: Denies: Hx Peritoneal Dialysis Psychiatric Medical History: Reports: None Past Surgical History: Reports: Hx Adenoidectomy, Hx Tonsillectomy - Immunizations Immunizations up to date: Yes Hx Diphtheria, Pertussis, Tetanus Vaccination: Yes Review of Systems - Review of Systems Constitutional: See HPI EENT: No symptoms reported Cardiovascular: See HPI Respiratory: No symptoms reported Gastrointestinal: No symptoms reported Female Genitourinary: - 26 WKS, G1 Musculoskeletal: No symptoms reported Skin: No symptoms reported Neurological/Psychological: No symptoms reported Physical Exam - Vital signs Interpretation: Tachycardic, Febrile. No: Hypoxic, Tachypneic - General General appearance: Appears well, Alert In distress: None - HEENT Head: Normocephalic Eyes: Normal Conjunctiva: Normal Ears: Normal Nasal: Normal Mouth/Lips: Normal Mucous membranes: Normal Pharynx: Normal - Respiratory Respiratory status: No respiratory distress. No: Tachypnea Breath sounds: Normal. No: Rhonchi, Wheezing - Cardiovascular Rhythm: Regular Heart sounds: Normal auscultation Murmur: No - Abdominal Inspection: Gravid female Bowel sounds: Hypoactive - Extremities General upper extremity: Normal inspection General lower extremity: Normal inspection. No: Tender, Edema - Neurological Neuro grossly intact: Yes Cognition: Normal Orientation: AAOx4 - Psychological Associated symptoms: Normal affect, Normal mood - Skin Skin Temperature: Warm Skin Moisture: Dry Skin Color: Normal Skin Turgor: Elastic Course - Laboratory Result Diagrams: 06/19/17 18:10 06/19/17 18:10 Laboratory results interpreted by me: 06/19/17 06/19/17 06/19/17 18:10 18:10 18:10 RDW 14.2 H Seg Neutrophils % 79.6 H Lymphocytes % 6.7 L Sodium 134.6 L Carbon Dioxide 21 L BUN 4 L AST 38 H Free T3 pg/mL 2.72 L - EKG Interpretation by Me EKG shows normal: Sinus rhythm, Hale, Intervals, QRS Complexes, ST-T Waves Rate: Tachycardia Discharge - Discharge Clinical Impression: Sinus tachycardia, Dehydration during , Influenza Condition: Stable Disposition: HOME, SELF-CARE Instructions: Acetaminophen, Fever ([facility]), Sinus Tachycardia ([facility]), Viral Syndrome ([facility]) Additional Instructions: REST, DRINK PLENTY OF FLUIDS. CONTINUE YOUR PRESENT MEDICATIONS. YOU MAY TAKE TYLENOL (ACETAMINOPHEN) FOR FEVER CONTROL IF NEEDED. FOLLOW UP WITH OB. CLINIC TOMORROW (SATURDAY), CALL AFTER 8 A.M. FOR APPT. TIME. Referrals: MELISSA COOLEY MD [Primary Care Provider] - Follow up tomorrow
[2017-06-19 18:22] LABS: ABSOLUTE EOSINOPHILS # (AUTO) 0.1 10^3/uL (0.0-0.6); ABSOLUTE LYMPHOCYTES (AUTO) 0.5 10^3/uL (0.5-4.7); ABSOLUTE MONOCYTES (AUTO) 0.9 10^3/uL (0.1-1.4); ABSOLUTE NEUT (AUTO) 6.1 10^3/uL (1.7-8.2); BASOPHILS % (AUTO) 0.5 % (0-2); EOSINOPHILS % (AUTO) 0.9 % (0-6); HEMOGLOBIN 12.3 g/dL (12.0-15.5); LYMPHOCYTES % (AUTO) 6.7 % (13-45); MEAN CORPUSCULAR HEMOGLOBIN 30.6 pg (27.0-33.4); MEAN CORPUSCULAR HGB CONC 34.1 g/dL (32.0-36.0); MEAN CORPUSCULAR VOLUME 90 fl (80-97); MONOCYTES % (AUTO) 12.3 % (3-13); PLATELET COUNT 184 10^3/uL (150-450); RED BLOOD COUNT 4.02 10^6/uL (3.72-5.28); RED CELL DISTRIBUTION WIDTH 14.2 % (11.5-14.0); SEGMENTED NEUTROPHILS % (AUTO) 79.6 % (42-78); TOTAL CELLS COUNTED % (AUTO) 100 %; WHITE BLOOD COUNT 7.7 10^3/uL (4.0-10.5)
[2017-06-19 18:45] LABS: ALANINE AMINOTRANSFERASE 33 U/L (9-52); ALKALINE PHOSPHATASE 69 U/L (38-126); ANION GAP 11 (5-19); ASPARTATE AMINO TRANSFERASE 38 U/L (14-36); BILIRUBIN,DIRECT 0.4 mg/dL (0.0-0.4); BILIRUBIN,TOTAL 0.8 mg/dL (0.2-1.3); BLOOD UREA NITROGEN 4 mg/dL (7-20); CALCIUM 10.1 mg/dL (8.4-10.2); CARBON DIOXIDE 21 mmol/L (22-30); CHLORIDE 103 mmol/L (98-107); GLUCOSE 75 mg/dL (75-110); POTASSIUM 3.8 mmol/L (3.6-5.0); SODIUM 134.6 mmol/L (137-145)
[2017-06-19 19:00] LABS: FREE T3 2.72 pg/mL (2.77-5.27); FREE T4 (FREE THYROXINE) 0.78 ng/dL (0.78-2.19)
[2017-06-19 19:14] LABS: THYROID STIMULATING HORMONE 0.72 uIU/mL (0.47-4.68)
[2017-06-19 20:10] VITALS: BP 132/67
--- NOTE | 2017-06-20 08:56 | EKG REPORT ---
SEVERITY:- OTHERWISE NORMAL ECG - SINUS TACHYCARDIA : Confirmed by: Rosa Garcia 20-Jun-2017 08:55:10
== END 2017-06-19 20:11 | disposition home or self-care (01) ==
LOC: ER 17:01
DX: O26.92 Pregnancy related conditions, unspecified, second trimester (principal); J11.1 Influenza due to unidentified influenza virus with other respiratory manifestations; R00.0 Tachycardia, unspecified; R00.2 Palpitations; R50.9 Fever, unspecified; Z3A.26 26 weeks gestation of pregnancy; Z88.0 Allergy status to penicillin
CPT/HCPCS: 93005; 99285; 96360; 36415; 84439; 84443; 85025; 80053; 84481; 93010; J7030

== ENCOUNTER 2017-06-20 14:41 | Emergency (ER) | payer MEDICAID ==
[2017-06-20 14:48] VITALS: BP 131/90
--- NOTE | 2017-06-20 16:39 | ER Document Report ---
HPI - HPI Pain Level: Denies Notes: Patient is a 21-year-old female who presents to the ED approximately 22 weeks complaining of having a decreased oral temperature taken at her house 2 prior to arrival. Patient states that her temperature this morning was at 95.4 on her oral machine. Patient states that because of the slow temperature she came to the emergency department to get reevaluated. Patient was evaluated twice yesterday once by myself and once by Dr. Godoy and diagnosed with influenza as well as mild dehydration and sinus tach. Patient was given fluids last evening which improved her heart rate and patient was sent home. Patient states that overall she does continue to have nasal congestion and discharge and an occasional cough, but is feeling much better. Patient just became concerned because of the low temperature. No other concerns or complaints. Patient continues to be on Tamiflu. She is eating and drinking without any difficulties. She is urinating normally and having normal bowel movements. Denies any headache, fever, neck pain, sore throat, chest pain, palpitations, syncope, shortness of breath, wheeze, dyspnea, abdominal pain, nausea/vomiting/ diarrhea, urinary retention, dysuria, hematuria, or rash. - ROS Systems Reviewed and Negative: Yes All other systems reviewed and negative - REPRODUCTIVE Reproductive: REPORTS: : Past Medical History - Social History Smoking Status: Never Smoker Family History: CAD, CVA, DM, Hyperlipidemia, Hypertension, Malignancy - Past Medical History Cardiac Medical History: Reports: Hx Hypercholesterolemia Pulmonary Medical History: Reports: Hx Asthma, Hx Bronchitis, Hx Pneumonia Neurological Medical History: Reports: Hx Migraine Renal/ Medical History: Denies: Hx Peritoneal Dialysis Past Surgical History: Reports: Hx Adenoidectomy, Hx Tonsillectomy - Immunizations Immunizations up to date: Yes Hx Diphtheria, Pertussis, Tetanus Vaccination: Yes Vertical Provider Document - CONSTITUTIONAL Agree With Documented VS: Yes Notes: PHYSICAL EXAMINATION: GENERAL: Well-appearing, well-nourished and in no acute distress. A&Ox4. Answers questions appropriately. Moves comfortably w/o notable distress HEAD: Atraumatic, normocephalic. EYES: Pupils equal round and reactive to light, extraocular movements intact, sclera anicteric, conjunctiva are normal. ENT: EAC clear b/l. TM's intact b/l without erythema, fluid, or perforation. Nares patent and with clear discharge. oropharynx no erythema without exudates. No tonsilar hypertrophy without erythema or exudate. No palatine shift. Uvula midline. No tongue protrusion. No drooling, hoarseness, or airway compromise. Moist mucous membranes. No sinus tenderness. NECK: Normal range of motion, supple without lymphadenopathy. No rigidity/ meningismus. LUNGS: Breath sounds clear to auscultation bilaterally and equal. No wheezes rales or rhonchi. No retractions HEART: Regular rate and rhythm without murmurs, rubs, gallops. ABDOMEN: Soft, nontender, nondistended abdomen. No guarding, no rebound. No masses appreciated. Normal bowel sounds present. No CVA tenderness bilaterally. No hepatosplenomegaly. NEUROLOGICAL: Normal speech, normal gait. Normal sensory, motor exams PSYCH: Normal mood, normal affect. SKIN: Warm, Dry, normal turgor, no rashes or lesions noted. - INFECTION CONTROL TRAVEL OUTSIDE OF THE [place] IN LAST 30 DAYS: No - RESPIRATORY O2 Sat by Pulse Oximetry: 98 Course - Re-evaluation Re-evalutation: 06/20/17 16:40 Patient is an afebrile, well-hydrated, 21-year-old female who presents to the ED with continued URI/influenza diagnosis for a worried well visit otherwise. Patient's p.o. temperature was taken today at [facility] and was 97.7. Patient presented to the ED due to concern of low body temperature sorry rectal was then ordered. Rectal temp was 97.6. I suspect that there was user error or machine error on her home readings. Patient is nontoxic-appearing. Patient is not hypoxic, tachypneic, nor tachycardic. Low suspicion for any sepsis, meningitis, respiratory compromise, shock, severe dehydration, or other systemic emergent condition at this time. Patient to monitor symptoms closely and seek medical attention with any acute changes. Conservative measures for symptoms. Recheck with your PCM in 3-5 days. Schedule follow-up with your OB/ RN OBGYN in 3-5 days as well. Return to the ED with any worsening/concerning symptoms otherwise as reviewed discharge. Patient is in agreement. - Vital Signs Vital signs: Temp Pulse Resp BP Pulse Ox 97.7 F 91 20 131/90 H 98 06/20/17 14:46 06/20/17 14:46 06/20/17 14:46 06/20/17 14:46 06/20/17 14:46 Discharge - Discharge Clinical Impression: Influenza, Acute URI, Worried well Condition: Stable Disposition: HOME, SELF-CARE Additional Instructions: Maintain adequate fluid intake Take meds as directed tylenol/ibuprofen as needed over the counter cold medication as needed for symptoms Humidified air may help Wash your hands regularly Wear a mask when coughing Your blood pressure needs to be well-controlled and monitored while * F/u: with your PCM and OBGYN in 3-5 days for a recheck Return to the ED with any fever, worsening pain, chest pain, palpitations, syncope, worsening JESUS, neck pain/stiffness, shortness of breath, wheezing, drooling, trouble swallowing/breathing, abdominal pain, n/v/d, rash, or worsening/concerning symptoms otherwise. Forms: Elevated Blood Pressure Referrals: [facility] [[facility]] - Follow up in 3-5 days
== END 2017-06-20 16:58 | disposition home or self-care (01) ==
LOC: ER 14:41
DX: O99.519 Diseases of the respiratory system complicating pregnancy, unspecified trimester (principal); J11.1 Influenza due to unidentified influenza virus with other respiratory manifestations; J45.909 Unspecified asthma, uncomplicated; O26.899 Other specified pregnancy related conditions, unspecified trimester; R05 Cough; R09.81 Nasal congestion; Z3A.00 Weeks of gestation of pregnancy not specified; Z87.01 Personal history of pneumonia (recurrent)
CPT/HCPCS: 99283

== ENCOUNTER 2017-07-12 18:45 | Emergency (ER) | payer OTHER, MEDICAID ==
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
[2017-07-12 20:29] VITALS: BP 112/70
== END 2017-07-12 20:28 | disposition home or self-care (01) ==
LOC: ER 18:45
DX: O26.893 Other specified pregnancy related conditions, third trimester (principal); R42 Dizziness and giddiness; F41.9 Anxiety disorder, unspecified; Z3A.30 30 weeks gestation of pregnancy; Z87.891 Personal history of nicotine dependence; V87.7XXA Person injured in collision between other specified motor vehicles (traffic), initial encounter
CPT/HCPCS: 99284

== ENCOUNTER 2017-07-31 11:28 | Emergency (ER) | payer MEDICAID, OTHER ==
--- NOTE | 2017-07-31 13:04 | ER Document Report ---
ED Dizziness/Weakness - General Chief Complaint: Dizziness Stated Complaint: DIZZY Time Seen by Provider: 07/31/17 13:02 Mode of Arrival: Ambulatory Information source: Patient Notes: History of complain-21 years old female while undergoing clinics, was standing for a while, felt right-sided numbness then felt dizzy and sat down check the blood sugar it was 83. The dizziness lasted for a while and then disappeared completely. Currently feeling much better. In between she drank about 3 cups of water. Denies any headache focal weakness now denies any numbness tingling sensation nausea vomiting. Denies any other constitutional symptoms. REVIEW OF SYSTEMS: CONSTITUTIONAL : Denies fever, chills, or sweats. Denies recent illness. EENT: Denies eye, ear, throat, or mouth pain or symptoms. Denies nasal or sinus congestion or discharge. Denies throat, tongue, or mouth swelling or difficulty swallowing. CARDIOVASCULAR: Denies chest pain. Denies palpitations or racing or irregular heart beat. Denies ankle edema. RESPIRATORY: Denies cough, cold, or chest congestion. Denies shortness of breath, difficulty breathing, or wheezing. GASTROINTESTINAL: Denies abdominal pain or distention. Denies nausea, vomiting , or diarrhea. Denies blood in vomitus, stools, or per rectum. Denies black, tarry stools. Denies constipation. GENITOURINARY: Denies difficulty urinating, painful urination, burning, frequency, blood in urine, or discharge. FEMALE GENITOURINARY: Denies vaginal bleeding, heavy or abnormal periods, irregular periods. Denies vaginal discharge or odor. MUSCULOSKELETAL: Denies back or neck pain or stiffness. Denies joint pain or swelling. SKIN: Denies rash, lesions or sores. HEMATOLOGIC : Denies easy bruising or bleeding. LYMPHATIC: Denies swollen, enlarged glands. NEUROLOGICAL: Denies confusion or altered mental status. Denies passing out or loss of consciousness. Denies dizziness or lightheadedness. Denies headache. Denies weakness or paralysis or loss of use of either side. Denies problems with gait or speech. Denies sensory loss, numbness, or tingling. Denies seizures. PSYCHIATRIC: Denies anxiety or stress. Denies depression, suicidal ideation, or homicidal ideation. ALL OTHER SYSTEMS REVIEWED AND NEGATIVE. PHYSICAL EXAMINATION: GENERAL: Well-appearing, well-nourished and in no acute distress. HEAD: Atraumatic, normocephalic. EYES: Pupils equal round and reactive to light, extraocular movements intact, conjunctiva are normal. ENT: Nares patent, oropharynx clear without exudates. Moist mucous membranes. NECK: Normal range of motion, supple without lymphadenopathy LUNGS: Breath sounds clear to auscultation bilaterally and equal. No wheezes rales or rhonchi. HEART: Regular rate and rhythm without murmurs ABDOMEN: Soft, nontender, nondistended abdomen. No guarding, no rebound. No masses appreciated. Female : deferred Musculoskeletal: Normal range of motion, no pitting or edema. No cyanosis. NEUROLOGICAL: Cranial nerves grossly intact. Normal speech, normal gait. Normal sensory, motor exams PSYCH: Normal mood, normal affect. SKIN: Warm, Dry, normal turgor, no rashes or lesions noted. Dictation was performed using [employer] voice recognition software TRAVEL OUTSIDE OF THE [place] IN LAST 30 DAYS: No - Related Data Allergies/Adverse Reactions: amoxicillin trihydrate [From Augmentin] Allergy (Verified 07/12/17 18:50) Potassium Clavulanate * [From Augmentin] Allergy (Verified 07/12/17 18:50) Past Medical History - Social History Smoking Status: Never Smoker Chew tobacco use (# tins/day): No Drug Abuse: None Family History: CAD, CVA, DM, Hyperlipidemia, Hypertension, Malignancy Patient has suicidal ideation: No Patient has homicidal ideation: No - Past Medical History Cardiac Medical History: Reports: Hx Hypercholesterolemia Pulmonary Medical History: Reports: Hx Asthma, Hx Bronchitis, Hx Pneumonia Neurological Medical History: Reports: Hx Migraine Renal/ Medical History: Denies: Hx Peritoneal Dialysis Past Surgical History: Reports: Hx Adenoidectomy, Hx Tonsillectomy - Immunizations Immunizations up to date: Yes Hx Diphtheria, Pertussis, Tetanus Vaccination: Yes Review of Systems - Review of Systems Constitutional: No symptoms reported, See HPI, Chills, Diaphoresis, Fever, Malaise, Weakness, Other, Weight gain, Weight loss, Recent illness EENT: No symptoms reported, See HPI, Eye pain, Eye discharge, Blurred vision, Tearing, Double vision, Ear pain, Ear discharge, Nose pain, Nose congestion, Nose discharge, Sinus pressure, Sinus discharge, Throat pain, Difficulty swallowing, Throat swelling, Mouth pain, Mouth swelling, Dental problem, Vertigo , Other Cardiovascular: No symptoms reported, See HPI, Chest pain, Palpitations, Heart racing, Orthopnea, Dyspnea, Syncope, Dizziness, Lightheaded, Edema, Other, Paroxysmal Nocturnal Dysp Respiratory: No symptoms reported, See HPI, Cough, Hurts to breathe, Hemoptysis , Short of breath, Sputum, Stridor, Wheezing, Other Gastrointestinal: No symptoms reported, See HPI, Abdomen distended, Abdominal pain, Diarrhea, Nausea, Vomiting, Constipation, Blood streaked bowels, Poor appetite, Poor fluid intake, Blood in vomit, Black stools, Rectal bleeding, Last bowel movement, Fecal incontinence, Other Genitourinary: No symptoms reported, See HPI, Burning, Dysuria, Discharge, Frequency, Flank pain, Hematuria, Incontinence, Pain, Urgency, Retention, Other Female Genitourinary: No symptoms reported, See HPI, Last menstrual period, , Post menopausal, Heavy/abnormal periods, Irregular period, Vaginal bleeding, Vaginal discharge, Vaginal odor, Painful intercourse, Other Skin: No symptoms reported, See HPI, Change in color, Change in hair/nails, Dryness, Lesions, Lumps, Rash, Other Hematologic/Lymphatic: No symptoms reported, See HPI, Anemia, Blood clots, Easy bleeding, Easy bruising, Enlarged lymph nodes, Swollen glands, Other Neurological/Psychological: No symptoms reported Physical Exam - Vital signs Vitals: Temp Pulse Resp BP Pulse Ox 97.7 F 101 H 20 101/78 97 07/31/17 11:46 07/31/17 11:46 07/31/17 11:46 07/31/17 11:46 07/31/17 11:46 Course - Re-evaluation Re-evalutation: 07/31/17 15:55 Uneventful - Vital Signs Vital signs: Temp Pulse Resp BP Pulse Ox 97.7 F 101 H 20 101/78 97 07/31/17 11:46 07/31/17 11:46 07/31/17 11:46 07/31/17 11:46 07/31/17 11:46 - Laboratory Result Diagrams: 07/31/17 13:45 07/31/17 13:45 Laboratory results interpreted by me: 07/31/17 07/31/17 13:45 13:45 Seg Neutrophils % 82.9 H Lymphocytes % 10.8 L Creatinine 0.50 L Discharge - Discharge Clinical Impression: Dizziness and giddiness Condition: Fair Disposition: HOME, SELF-CARE Instructions: Dizziness ([facility]) Referrals: MELISSA COOLEY MD [Primary Care Provider] - Follow up as needed
[2017-07-31 14:00] LABS: ABSOLUTE EOSINOPHILS # (AUTO) 0.1 10^3/uL (0.0-0.6); ABSOLUTE MONOCYTES (AUTO) 0.4 10^3/uL (0.1-1.4); ABSOLUTE NEUT (AUTO) 7.7 10^3/uL (1.7-8.2); BASOPHILS % (AUTO) 0.2 % (0-2); EOSINOPHILS % (AUTO) 1.4 % (0-6); HEMATOCRIT 36.3 % (36.0-47.0); HEMOGLOBIN 12.8 g/dL (12.0-15.5); LYMPHOCYTES % (AUTO) 10.8 % (13-45); MEAN CORPUSCULAR HEMOGLOBIN 31.7 pg (27.0-33.4); MEAN CORPUSCULAR HGB CONC 35.3 g/dL (32.0-36.0); MEAN CORPUSCULAR VOLUME 90 fl (80-97); MONOCYTES % (AUTO) 4.7 % (3-13); PLATELET COUNT 233 10^3/uL (150-450); RED BLOOD COUNT 4.04 10^6/uL (3.72-5.28); RED CELL DISTRIBUTION WIDTH 13.4 % (11.5-14.0); SEGMENTED NEUTROPHILS % (AUTO) 82.9 % (42-78); TOTAL CELLS COUNTED % (AUTO) 100 %; WHITE BLOOD COUNT 9.3 10^3/uL (4.0-10.5)
[2017-07-31 14:23] LABS: ALANINE AMINOTRANSFERASE 18 U/L (9-52); ALBUMIN 3.9 g/dL (3.5-5.0); ALKALINE PHOSPHATASE 86 U/L (38-126); ANION GAP 9 (5-19); ASPARTATE AMINO TRANSFERASE 15 U/L (14-36); BILIRUBIN,DIRECT 0.1 mg/dL (0.0-0.4); BILIRUBIN,TOTAL 0.4 mg/dL (0.2-1.3); BLOOD UREA NITROGEN 7 mg/dL (7-20); CARBON DIOXIDE 25 mmol/L (22-30); CHLORIDE 103 mmol/L (98-107); GLUCOSE 84 mg/dL (75-110); POTASSIUM 4.2 mmol/L (3.6-5.0); SODIUM 137.2 mmol/L (137-145); TOTAL PROTEIN 6.6 g/dL (6.3-8.2)
[2017-07-31 16:32] VITALS: BP 106/52
== END 2017-07-31 16:34 | disposition home or self-care (01) ==
LOC: ER 11:28
DX: R42 Dizziness and giddiness (principal); R20.0 Anesthesia of skin; J45.909 Unspecified asthma, uncomplicated
CPT/HCPCS: 36415; 80053; 85025; 99284

== ENCOUNTER 2017-09-17 06:48 | Inpatient (IN) | payer MEDICAID ==
[2017-09-17] MEDS ORDERED: OXYTOCIN/NORMAL SALINE 20 UNIT/1,000 ML RTUINJ IV PRN (07:06)
[2017-09-17] MEDS ORDERED: RINGERS SOLUTION,LACTATED 1,000 ML IV ONE (07:06)
[2017-09-17] MEDS ORDERED: DINOPROSTONE 10 MG VAGINAL INSERT.SR PV PRN (07:06)
[2017-09-17] MEDS ORDERED: RINGERS SOLUTION,LACTATED 1,000 ML IV PRN (07:06)
[2017-09-17] MEDS ORDERED: VANCOMYCIN HCL 1,000 MG in DEXTROSE 5%-WATER 250 ML IV SCH (07:15)
[2017-09-17 07:42] LABS: APPEARANCE,URINE CLOUDY; BILIRUBIN,URINE NEGATIVE (NEGATIVE); COLOR,URINE YELLOW; GLUCOSE, URINE NEGATIVE (NEGATIVE); KETONES,URINE 20 mg/dL (NEGATIVE); LEUKOCYTE ESTERASE,URINE NEGATIVE (NEGATIVE); NITRITE,URINE NEGATIVE (NEGATIVE); PROTEIN,URINE NEGATIVE (NEGATIVE); URINE SPECIFIC GRAVITY 1.012; UROBILINOGEN,URINE NEGATIVE mg/dL (<2.0)
[2017-09-17] MEDS ORDERED: DINOPROSTONE 10 MG VAGINAL INSERT.SR ONE (07:49)
[2017-09-17 07:58] LABS: ABSOLUTE EOSINOPHILS # (AUTO) 0.2 10^3/uL (0.0-0.6); ABSOLUTE LYMPHOCYTES (AUTO) 1.6 10^3/uL (0.5-4.7); ABSOLUTE MONOCYTES (AUTO) 0.6 10^3/uL (0.1-1.4); ABSOLUTE NEUT (AUTO) 5.6 10^3/uL (1.7-8.2); BASOPHILS % (AUTO) 0.4 % (0-2); EOSINOPHILS % (AUTO) 2.6 % (0-6); HEMATOCRIT 34.6 % (36.0-47.0); HEMOGLOBIN 11.8 g/dL (12.0-15.5); LYMPHOCYTES % (AUTO) 20.1 % (13-45); MEAN CORPUSCULAR HEMOGLOBIN 30.6 pg (27.0-33.4); MEAN CORPUSCULAR HGB CONC 34.1 g/dL (32.0-36.0); MEAN CORPUSCULAR VOLUME 90 fl (80-97); MONOCYTES % (AUTO) 7.6 % (3-13); PLATELET COUNT 189 10^3/uL (150-450); RED BLOOD COUNT 3.87 10^6/uL (3.72-5.28); RED CELL DISTRIBUTION WIDTH 13.4 % (11.5-14.0); SEGMENTED NEUTROPHILS % (AUTO) 69.3 % (42-78); TOTAL CELLS COUNTED % (AUTO) 100 %; WHITE BLOOD COUNT 8.1 10^3/uL (4.0-10.5)
[2017-09-17 07:59] LABS: URINE AMPHETAMINES SCREEN NEGATIVE; URINE BARBITURATES SCREEN NEGATIVE; URINE BENZODIAZEPINES SCREEN NEGATIVE; URINE COCAINE SCREEN NEGATIVE; URINE MARIJUANA (THC) SCREEN NEGATIVE; URINE METHADONE SCREEN NEGATIVE; URINE PHENCYCLIDINE SCREEN NEGATIVE
[2017-09-17] MEDS ORDERED: VANCOMYCIN HCL INJ 1000 MG VIAL IV SCH (08:00)
[2017-09-17] MEDS: VANCOMYCIN HCL INJ 1000 MG VIAL IV SCH ×2 (08:00→20:00)
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
[2017-09-17] MEDS ORDERED: MISOPROSTOL 0.1 MG TABLET ONE (21:14)
[2017-09-17] MEDS ORDERED: MISOPROSTOL 0.1 MG TABLET PO ONE (21:14)
[2017-09-18] MEDS ORDERED: MISOPROSTOL 0.1 MG TABLET ONE (01:35)
[2017-09-18] MEDS: MISOPROSTOL 0.1 MG TABLET PO SCH ×2 (01:37→05:30)
[2017-09-18] MEDS ORDERED: VANCOMYCIN HCL INJ 1000 MG VIAL ONE (09:04)
[2017-09-18] MEDS: VANCOMYCIN HCL INJ 1000 MG VIAL IV SCH (09:25)
[2017-09-18] MEDS ORDERED: NALBUPHINE HCL INJ 10 MG/1 ML AMPULE INJ ONE (11:14)
[2017-09-18] MEDS ORDERED: NALBUPHINE HCL INJ 10 MG/1 ML AMPULE ONE (11:16)
[2017-09-18] MEDS ORDERED: PROMETHAZINE HCL INJ 25 MG/1 ML VIAL ONE (11:16)
[2017-09-18] MEDS ORDERED: OXYTOCIN/NORMAL SALINE 20 UNIT/1,000 ML RTUINJ ONE (11:29)
[2017-09-18] MEDS ORDERED: BUPIVACAINE HCL 0.25 % INJ/PF (2.5 MG/1 ML) 30 ML VIAL ONE (13:42)
[2017-09-18] MEDS ORDERED: EPHEDRINE SULFATE INJ 50 MG/1 ML AMPULE ONE (13:42)
[2017-09-18] MEDS ORDERED: FENTANYL/BUPIVACAINE/NS/PF 300 MCG/150 ML RTUINJ EPI ONE ×2 (13:42→22:20)
--- NOTE | 2017-09-18 15:44 | L&D Progress Notes ---
PROGRESS NOTES Datetime Report Generated by CPN: 09/18/2017 15:44 PROGRESS NOTE Impression: Reassuring Heart Rate Procedures: Sterile Vag Exam Plan: Continue Present Management; Induction; Cervical Ripening Informed Consent Obtained: Vaginal Delivery; Induction of Labor; Risks, Benefits and Alternatives Discussed Vital Signs : Reviewed; Within Normal Limits Comment: Pt with A2GDM and rec'd cervidil since yesterday am then several doses of cytotec. on exam. Cooks catheter placed. Pt desires nubain. Will give nubain for pain. REviewed concern for large baby poss 9.5 -10# based on recent US 2wks ago 8#6oz and leopolds. Pt with polyhydramnios on 09/03 but on f/u US on 09/10 no e/o polyhydramnios. VAGINAL EXAM Dilatation: 1 Dilatation: 0 Effacement: 25 Effacement: 0 Station: -3 Station: -3 Contractions: irreg MEMBRANES Pooling: Negative Membranes: Intact FETUS A FHR - Baseline: 160 Monitoring: External US Variability: Moderate 6-25bpm Accelerations: 15X15 Decelerations: None FHR Category: Category I : 39.3 Estimated Weight (gm): 3700 Presentation: Vertex SIGNATURE SIGNATURE: [id number] SIGNATURE: [id number] Signature: Electronically signed by Adwoa Browne MD ([facility]) on 09/18/2017 at 15:44 with User ID: [email or web address]
--- NOTE | 2017-09-18 19:38 | L&D Progress Notes ---
PROGRESS NOTES Datetime Report Generated by CPN: 09/18/2017 19:38 PROGRESS NOTE Impression: Normal Progression of Labor Procedures: Sterile Vag Exam Plan: Continue Present Management; Induction Informed Consent Obtained: Vaginal Delivery; Induction of Labor; Risks, Benefits and Alternatives Discussed Vital Signs : Reviewed; Within Normal Limits Comment: SVE performed after Cooks removed from vagina. SROM with SVE. Significant clear fluid upon SROM. Cvx 5/60/-3. Reviewed continued IOL and plan of care. Reviewed continued concern for poss macrosomia. reviewed need for continued monitoring of labor curve. section for maternal indications. Reassuring FWB. VAGINAL EXAM Dilatation: 5 Effacement: 60 Station: -3 Contractions: q 2-3 MEMBRANES Membranes: Ruptured Amniotic Fluid Color: Clear FETUS A FHR - Baseline: 145 Monitoring: External US Variability: Moderate 6-25bpm Accelerations: 15X15 Decelerations: None FHR Category: Category I FETUS C SIGNATURE: [id number] Signature: with User ID: [email or web address]
[2017-09-18] MEDS ORDERED: VANCOMYCIN HCL 1,000 MG in DEXTROSE 5%-WATER 250 ML IV SCH (20:00)
[2017-09-18] MEDS ORDERED: LIDOCAINE 2% INJ-PF (20 MG/ML) 10 ML AMPUL ONE (22:12)
[2017-09-19] MEDS ORDERED: CLINDAMYCIN 900 MG/D5W RTU 50 ML IV ONE ×2 (01:43→01:47)
[2017-09-19] MEDS ORDERED: CITRIC ACID/SODIUM CITRATE ORAL SOLN 15 ML UDCUP PO ONE (01:45)
[2017-09-19] MEDS ORDERED: CITRIC ACID/SODIUM CITRATE ORAL SOLN 15 ML UDCUP ONE (01:46)
[2017-09-19] MEDS ORDERED: LIDOCAINE 2% INJ-PF (20 MG/ML) 10 ML AMPUL ONE ×2 (01:46)
--- NOTE | 2017-09-19 02:03 | L&D Progress Notes ---
PROGRESS NOTES Datetime Report Generated by CPN: 09/19/2017 02:03 PROGRESS NOTE Impression: Arrest of Dilatation/Descent Procedures: Artificial ROM; Sterile Vag Exam Plan: Continue Present Management; Induction; Deliver- Section Informed Consent Obtained: Vaginal Delivery; Risks, Benefits and Alternatives Discussed Vital Signs : Reviewed Comment: Pt calling due to pain. cvx now 4cm/50/-2. Was 5//-2. Cervix appears to be swelling. No further descent. Offered IUPC and conitued pitocin with MVUs and then if no change proceed with section. Patient desires to proceed with section. R/b/A reviewed. will proceed with section. VAGINAL EXAM Dilatation: 4 Effacement: 50 Station: -2 Contractions: q 2-3 FETUS A FHR - Baseline: 160 Monitoring: External US Variability: Moderate 6-25bpm Accelerations: 15X15 Decelerations: None FHR Category: Category I FETUS C SIGNATURE: [id number];[id number] Signature: with User ID: [email or web address]
[2017-09-19] MEDS ORDERED: MIDAZOLAM 2 MG/2 ML INJ ONE ×2 (02:12)
[2017-09-19] MEDS ORDERED: ONDANSETRON HCL INJ/PF 4 MG/2 ML SDV ONE (02:12)
[2017-09-19] MEDS ORDERED: OXYTOCIN 10 UNIT/ML VIAL ONE (02:12)
[2017-09-19] MEDS ORDERED: MORPHINE SULFATE 10 MG/ML INJ ONE ×2 (02:13→03:55)
[2017-09-19] MEDS ORDERED: PROPOFOL INJ 200 MG/20 ML VIAL IV ONE (02:39)
[2017-09-19] MEDS ORDERED: OXYTOCIN/NORMAL SALINE 20 UNIT/1,000 ML RTUINJ IV PRN (03:45)
[2017-09-19] MEDS ORDERED: HYDROMORPHONE HCL INJ/PF 2 MG/ML AMPULE IV PRN (03:45)
[2017-09-19] MEDS ORDERED: PROMETHAZINE HCL INJ 25 MG/1 ML VIAL IV PRN (03:45)
[2017-09-19] MEDS ORDERED: ACETAMINOPHEN 325 MG TABLET PO PRN (03:45)
[2017-09-19] MEDS ORDERED: ACETAMINOPHEN 100 ML IV PRN (03:45)
[2017-09-19] MEDS ORDERED: SIMETHICONE 80 MG TAB.CHEW PO PRN (03:45)
[2017-09-19] MEDS ORDERED: OXYCODONE-ACETAMINOPHEN 5-325 MG TABLET PO PRN (03:45)
[2017-09-19] MEDS ORDERED: DIPH/PERTUSS(ACELL)/TETANUS VAC/PF 0.5 ML SYR (>=10YO) IM PRN (03:45)
[2017-09-19] MEDS ORDERED: MEASLES,MUMPS&RUBELLA VACC/PF 0.5 ML VIAL SUBCUT PRN (03:45)
[2017-09-19] MEDS ORDERED: MEPERIDINE HCL/PF INJ 25 MG/1 ML DISP.SYRIN ONE (03:55)
[2017-09-19] MEDS ORDERED: OXYTOCIN/NORMAL SALINE 20 UNIT/1,000 ML RTUINJ ONE (03:58)
[2017-09-19] MEDS ORDERED: CLINDAMYCIN 900 MG/D5W RTU 50 ML IV SCH ×2 (04:00→10:00)
--- NOTE | 2017-09-19 04:43 | Brief Operative Note ---
BRIEF OPERATIVE REPORT DATE OF SURGERY: 09/19/17 TIME OF SURGERY: 03:00 PREOPERATIVE DIAGNOSIS: Obesity, Arrest of Dilation, A2GDM, GBS positive, POSTOPERATIVE DIAGNOSIS: RHEA - delivered SURGEON: NIDA HUYNH FINDINGS: Upon entry into pfannensteil incision note just under skin apparent old cystic area of prior infection (not visible on skin, however other cystic areas noted on skin, chronic in appearance) VMI delivered at 0233. Caput noted. Small 1cm anterior uterine fibroid. Uterus otherwise normal. Normal bilateral tubes/ovaries. 7/8. weight 8#4oz. IVF 1900ml, UOP 350ml COMPLICATIONS: none ESTIMATED BLOOD LOSS: 1350 QBL (suspect this is too high for intraop findings) TISSUE REMOVED OR ALTERED: placenta and cord not sent to pathology TECHNICAL PROCEDURE: Primary section
[2017-09-19] MEDS: IBUPROFEN 800 MG TABLET PO SCH ×3 (06:38→18:25)
[2017-09-19] MEDS: OXYCODONE-ACETAMINOPHEN 5-325 MG TABLET PO PRN ×3 (07:29→19:37)
[2017-09-19] MEDS ORDERED: OXYCODONE-ACETAMINOPHEN 5-325 MG TABLET ONE (07:29)
--- NOTE | 2017-09-19 10:02 | PDOC PROGRESS REPORT ---
Subjective-OB Progress Note for:: 09/19/17 Physical Exam (OB) Vital Signs: Temp Pulse Resp BP Pulse Ox 98.4 F 92 15 117/64 97 09/19/17 07:42 09/19/17 07:42 09/19/17 07:42 09/19/17 07:42 09/19/17 07:42 - Dressing Removed: No Incision: Dressing - Lochia Lochia Amount: Scant < 10 ml Lochia Color: Rubra/Red - Abdomen Description: Soft Hernia Present: No Bowel Sounds: Normoactive Flatus Presence: Absent Stool: No Fundal Description: Firm, Midline Fundal Height: u/u - u/2 Objective-Diagnostic Laboratory: 09/17/17 07:44
[2017-09-19] MEDS: DOCUSATE SODIUM 100 MG CAPSULE PO SCH ×2 (10:58→18:25)
[2017-09-19] MEDS: PRENATAL VITAMIN W DHA CAPSULE PO SCH (10:58)
[2017-09-20] MEDS: IBUPROFEN 800 MG TABLET PO SCH ×5 (00:30→23:25)
[2017-09-20 06:31] LABS: HEMATOCRIT 33.1 % (36.0-47.0); HEMOGLOBIN 11.1 g/dL (12.0-15.5); MEAN CORPUSCULAR HEMOGLOBIN 30.4 pg (27.0-33.4); MEAN CORPUSCULAR HGB CONC 33.7 g/dL (32.0-36.0); MEAN CORPUSCULAR VOLUME 90 fl (80-97); PLATELET COUNT 180 10^3/uL (150-450); RED BLOOD COUNT 3.67 10^6/uL (3.72-5.28)
[2017-09-20] MEDS: OXYCODONE-ACETAMINOPHEN 5-325 MG TABLET PO PRN ×4 (10:09→23:26)
[2017-09-20] MEDS: DOCUSATE SODIUM 100 MG CAPSULE PO SCH ×2 (10:09→18:29)
[2017-09-20] MEDS: PRENATAL VITAMIN W DHA CAPSULE PO SCH (10:09)
--- NOTE | 2017-09-20 17:06 | PDOC PROGRESS REPORT ---
Subjective-OB Progress Note for:: 09/20/17 Subjective: reports bleeding slowing, not passing gas, RN notified and asked to give simethicone. encouraged to walk today. Physical Exam (OB) Vital Signs: Temp Pulse Resp BP Pulse Ox 98.0 F 71 17 106/68 98 09/20/17 11:59 09/20/17 11:59 09/20/17 11:59 09/20/17 11:59 09/20/17 11:59 Intake & Output 09/19/17 09/20/17 09/21/17 06:59 06:59 06:59 Intake Total 1500 Output Total 2600 Balance -1100 - Dressing Removed: Yes Incision: Dressing, Well Approximated - Abdomen Description: Soft, Flat Hernia Present: No Fundal Description: Firm, Midline Fundal Height: u/u - u/2 - Extremities Lower extremities: Rhona's sign - neg Calf: Normal, Nontender Objective-Diagnostic Laboratory: 09/20/17 06:21 09/20/17 06:21 WBC 10.0 RBC 3.67 L Hgb 11.1 L Hct 33.1 L MCV 90 MCH 30.4 MCHC 33.7 RDW 14.0 Plt Count 180 Assessment and Plan(PN) - Assessment and Plan (1) Delivery by section of full-term infant Is this a current diagnosis for this admission?: Yes - Time Spent with Patient Time with patient: Less than 15 minutes - Disposition Anticipated Discharge: Home Within: within 24 hours
[2017-09-21] MEDS: OXYCODONE-ACETAMINOPHEN 5-325 MG TABLET PO PRN ×2 (04:02→12:12)
[2017-09-21] MEDS: IBUPROFEN 800 MG TABLET PO SCH (06:52)
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
[2017-09-21] MEDS: DOCUSATE SODIUM 100 MG CAPSULE PO SCH (09:58)
[2017-09-21] MEDS: PRENATAL VITAMIN W DHA CAPSULE PO SCH (09:58)
[2017-09-21 10:41] VITALS: BP 97/55
--- NOTE | 2017-10-14 04:04 | Operative Report ---
Operative Report DATE OF SURGERY: 09/19/17 PREOPERATIVE DIAGNOSIS: Obesity, Arrest of Dilation, A2GDM, GBS positive, POSTOPERATIVE DIAGNOSIS: RHEA - delivered OPERATION: Primary section SURGEON: NIDA HUYNH ANESTHESIA: Epidural TISSUE REMOVED OR ALTERED: placenta and cord not sent to pathology COMPLICATIONS: none ESTIMATED BLOOD LOSS: 1350 QBL (suspect this is too high for intraop findings) INTRAOPERATIVE FINDINGS: Upon entry into pfannensteil incision note just under skin apparent old cystic area of prior infection (not visible on skin, however other cystic areas noted on skin, chronic in appearance) VMI delivered at 0233. Caput noted. Small 1cm anterior uterine fibroid. Uterus otherwise normal. Normal bilateral tubes/ovaries. 7/8. weight 8#4oz. IVF 1900ml, UOP 350ml PROCEDURE: Anesthesia provider: [Harry Lara MD, Chucho Palmer CRNA] Urine output: [350ml] IV fluids: [1900ml] Indications: [21yo at 39+4ega admitted for IOL for A2GDM on 09/17 in the morning for cervidil IOL then recieved cytotec on evening of 09/17. Upon evaluation on 09/18 in the am cervix was 1cm and Cooks catheter placed. The cooks catheter came out and cervix was 5cm at approx 1900. AROM performed. Pitocin then increased to obtain adequate contractions and IUPC placed for evaluation of contraction MVUs. No further cervical dilation was achieved and recommendation for Primary section due to Arrest of dilation reviewed and she desired to proceed. The risks/benefits/alternatives were reviewed. ] Procedure: The patient was taken to the operating room where spinal anesthesia was obtained and found to be adequate. She was then prepped and draped in the normal sterile fashion and placed in the dorsal supine position with a leftward tilt. A Pfannenstiel skin incision was then made and carried through to the underlying layers of the fascia with the scalpel. The fascia was incised in the midline and the incision extended laterally with the George scissors. The superior aspect of the fascial incision was then grasped with Manor clamps elevated and the underlying rectus muscles dissected off [bluntly]. Attention was then turned to the inferior aspect of the fascial incision which in a similar fashion was grasped, tented up with Jane clamps, and the rectus muscles dissected off [bluntly]. The rectus muscles were then in the midline and the peritoneum at the amount identified and entered [bluntly]. The peritoneal incision was then extended superiorly and inferiorly with good visualization of the bladder. The bladder blade was inserted and the vesicouterine peritoneum identified grasped with Brazilian pickups and entered sharply with the Metzenbaum scissors. This incision was then extended laterally with the Metzenbaum scissors and a bladder flap created digitally. The bladder blade was then reinserted and the lower uterine segment incised in a transverse fashion with the scalpel. The uterine incision was then extended bluntly. The bladder blade was removed and the infant's head was delivered from cephalic presentation atraumatically. The nose and mouth were suctioned and the cord doubly clamped and cut. And the was handed off to waiting pediatricians. The placenta was then delivered spontaneously and the uterus exteriorized and cleared of all clots and debris. The uterine incision was then repaired with 1- 0 Vicryl in a running locked fashion. A second layer of the same suture was used to obtain hemostasis via imbrication of the initial layer. The bladder flap was then repaired with 3-0 chromic in a running fashion. The uterus was returned to the patient's abdomen and Interceed was placed overlying the uterine incision to prevent adhesions. The gutters were cleared of all clots and debris. All operative sites were noted to be hemostatic. The fascia was reapproximated with 0 Vicryl in a running fashion from each lateral edge to the midline. The skin was closed with 3-0 Monocryl in a running subcuticular fashion with overlying Dermabond for additional dressing as well as wound closure. The patient tolerated the procedure well. Sponge lap needle and instrument counts are correct times 2. 900mg Clindamycin was given prior to skin incision. The patient was taken to the recovery area awake and in stable condition.
== END 2017-09-21 13:26 | disposition home or self-care (01) | DRG 765 ==
LOC: LR 06:48 → 2S 09-19 07:37
PROVIDERS: ADMIT Obstetrics & Gynecology Gynecology; ATTEND Obstetrics & Gynecology Gynecology
PROC: 4A1HXCZ Monitoring of Products of Conception, Cardiac Rate, External Approach (ICD-10-PCS; 2017-09-17)
PROC: 3E0P7VZ Introduction of Hormone into Female Reproductive, Via Natural or Artificial Opening (ICD-10-PCS; 2017-09-17)
PROC: 3E033VJ Introduction of Other Hormone into Peripheral Vein, Percutaneous Approach (ICD-10-PCS; 2017-09-17)
PROC: 10D00Z1 Extraction of Products of Conception, Low, Open Approach (ICD-10-PCS; principal; 2017-09-19)
DX: O62.1 Secondary uterine inertia (principal); Z68.42 Body mass index [BMI] 45.0-49.9, adult; O99.824 Streptococcus B carrier state complicating childbirth; O24.425 Gestational diabetes mellitus in childbirth, controlled by oral hypoglycemic drugs; O40.3XX0 Polyhydramnios, third trimester, not applicable or unspecified; O9A.42 Sexual abuse complicating childbirth; O99.214 Obesity complicating childbirth; E66.01 Morbid (severe) obesity due to excess calories; O34.13 Maternal care for benign tumor of corpus uteri, third trimester; D25.9 Leiomyoma of uterus, unspecified; Z88.1 Allergy status to other antibiotic agents; Z88.8 Allergy status to other drugs, medicaments and biological substances; Z79.899 Other long term (current) drug therapy; Z3A.39 39 weeks gestation of pregnancy; Z37.0 Single live birth
CPT/HCPCS: 1961; 36415; 80307; 81005; 82962; 85025; 85027; 86592; 86850; 86900; 86901; 94799; J2175; J2250; J2270; J2300; J2405; J2550; J2590; J2704; J3010; J3370; J3490; J7060

== ENCOUNTER 2017-09-27 19:12 | Emergency (ER) | payer MEDICAID ==
[2017-09-27] MEDS ORDERED: KETOROLAC TROMETHAMINE 10 MG TABLET PO ONE (20:36)
[2017-09-27] MEDS ORDERED: KETOROLAC TROMETHAMINE 60 MG/2 ML SDV IM ONE (20:48)
--- NOTE | 2017-09-27 21:06 | ER Document Report ---
ED General - General Chief Complaint: Chest Wall Pain Stated Complaint: CHEST PAIN Time Seen by Provider: 09/27/17 20:27 Mode of Arrival: Ambulatory Information source: Patient Notes: 21-year-old female presents with complaints of chest wall pain that started 1 hour prior to arrival. Patient notes it is a sharp pain denies any fevers or chills denies any shortness of breath associated with it notes it hurts with palpation over chest wall patient denies any previous similar episodes Patient denies any recent travel, family history of DVTs or PEs, family history of cardiac concerns, any calf swelling or pain TRAVEL OUTSIDE OF THE [place] IN LAST 30 DAYS: No COUNTRY TRAVELED TO/FROM: [facility] - [facility] Onset: Just prior to arrival Onset/Duration: Sudden Quality of pain: Sharp Severity: Mild Pain Level: 1 Associated symptoms: Body/muscle aches Exacerbated by: Movement Relieved by: Denies Similar symptoms previously: No Recently seen / treated by doctor: Yes - Related Data Allergies/Adverse Reactions: amoxicillin trihydrate [From Augmentin] Allergy (Verified 07/12/17 18:50) Potassium Clavulanate * [From Augmentin] Allergy (Verified 07/12/17 18:50) Past Medical History - Social History Smoking Status: Never Smoker Cigarette use (# per day): No Chew tobacco use (# tins/day): No Smoking Education Provided: No Frequency of alcohol use: None Drug Abuse: None Family History: CAD, CVA, DM, Hyperlipidemia, Hypertension, Malignancy Patient has suicidal ideation: No Patient has homicidal ideation: No - Past Medical History Cardiac Medical History: Reports: Hx Hypercholesterolemia Pulmonary Medical History: Reports: Hx Asthma, Hx Bronchitis, Hx Pneumonia Neurological Medical History: Reports: Hx Migraine Renal/ Medical History: Denies: Hx Peritoneal Dialysis Past Surgical History: Reports: Hx Adenoidectomy, Hx Tonsillectomy - Immunizations Immunizations up to date: Yes Hx Diphtheria, Pertussis, Tetanus Vaccination: Yes Review of Systems - Review of Systems Notes: REVIEW OF SYSTEMS: CONSTITUTIONAL : Denies fever, chills, or sweats. Denies recent illness. EENT: Denies eye, ear, throat, or mouth pain or symptoms. Denies nasal or sinus congestion or discharge. Denies throat, tongue, or mouth swelling or difficulty swallowing. CARDIOVASCULAR: Denies chest pain. Denies palpitations or racing or irregular heart beat. Denies ankle edema. RESPIRATORY: Admits to chest wall pain GASTROINTESTINAL: Denies abdominal pain or distention. Denies nausea, vomiting , or diarrhea. Denies blood in vomitus, stools, or per rectum. Denies black, tarry stools. Denies constipation. GENITOURINARY: Denies difficulty urinating, painful urination, burning, frequency, blood in urine, or discharge. FEMALE GENITOURINARY: Denies vaginal bleeding, heavy or abnormal periods, irregular periods. Denies vaginal discharge or odor. MUSCULOSKELETAL: Denies back or neck pain or stiffness. Denies joint pain or swelling. SKIN: Denies rash, lesions or sores. HEMATOLOGIC : Denies easy bruising or bleeding. LYMPHATIC: Denies swollen, enlarged glands. NEUROLOGICAL: Denies confusion or altered mental status. Denies passing out or loss of consciousness. Denies dizziness or lightheadedness. Denies headache. Denies weakness or paralysis or loss of use of either side. Denies problems with gait or speech. Denies sensory loss, numbness, or tingling. Denies seizures. PSYCHIATRIC: Denies anxiety or stress. Denies depression, suicidal ideation, or homicidal ideation. ALL OTHER SYSTEMS REVIEWED AND NEGATIVE. PHYSICAL EXAMINATION: GENERAL: Well-appearing, well-nourished and in no acute distress. HEAD: Atraumatic, normocephalic. EYES: Pupils equal round and reactive to light, extraocular movements intact, conjunctiva are normal. ENT: Nares patent, oropharynx clear without exudates. Moist mucous membranes. NECK: Normal range of motion, supple without lymphadenopathy LUNGS: Breath sounds clear to auscultation bilaterally and equal. No wheezes rales or rhonchi. Midsternal pain reproducing the same exact pain is noted HEART: Regular rate and rhythm without murmurs ABDOMEN: Soft, nontender, nondistended abdomen. No guarding, no rebound. No masses appreciated. Female : deferred Musculoskeletal: Normal range of motion, no pitting or edema. No cyanosis. NEUROLOGICAL: Cranial nerves grossly intact. Normal speech, normal gait. Normal sensory, motor exams PSYCH: Normal mood, normal affect. SKIN: Warm, Dry, normal turgor, no rashes or lesions noted. Dictation was performed using [employer] voice recognition software Physical Exam - Vital signs Vitals: Temp Pulse Resp BP Pulse Ox 99.5 F 86 18 143/92 H 98 09/27/17 19:28 09/27/17 19:28 09/27/17 19:28 09/27/17 19:28 09/27/17 19:28 Course - Re-evaluation Re-evalutation: 09/27/17 21:39 Patient is not tachycardic tachypneic, sats are 90%, I believe this is just irritation of her chest wall we discussed my concerns about pulmonary emboli but she defers treatment or testing at this time. Therefore I will treat her with Toradol for the chest wall pain, it is noted that the patient delivered 1 week ago and this is a risk factor with hospitalization therefore I have explained to the patient if symptoms do not improve or if they worsen she must return immediately for further care Patient notes improvement with Toradol After performing a Medical Screening Examination, I estimate there is LOW risk for RUPTURED ESOPHAGUS, PNEUMOTHORAX, PULMONARY EMBOLISM, ACUTE CORONARY SYNDROME, OR THORACIC AORTIC DISSECTION, thus I consider the discharge disposition reasonable. I have reevaluated this patient multiple times and no significant life threatening changes are noted. The patient and I have discussed the diagnosis and risks, and we agree with discharging home with close follow-up. We also discussed returning to the Emergency Department immediately if new or worsening symptoms occur. We have discussed the symptoms which are most concerning (e.g., bloody sputum, worsening pain or shortness of breath) that necessitate immediate return. - Vital Signs Vital signs: Temp Pulse Resp BP Pulse Ox 98.3 F 78 18 134/93 H 98 09/27/17 21:20 09/27/17 21:20 09/27/17 21:20 09/27/17 21:20 09/27/17 21:20 Discharge - Discharge Clinical Impression: Chest wall pain Condition: Stable Disposition: HOME, SELF-CARE Instructions: Chest Wall Pain ([facility]) Additional Instructions: Return immediately if you have any shortness of breath difficulty breathing or any other concerns Prescriptions: Ketorolac Tromethamine [Toradol 10 mg Tablet] 10 mg PO Q8HP PRN #9 tablet PRN Reason:
[2017-09-27 21:20] VITALS: BP 134/93
--- NOTE | 2017-09-28 07:12 | EKG REPORT ---
SEVERITY:- NORMAL ECG - SINUS RHYTHM : Confirmed by: Lino Sandhu MD 28-Sep-2017 07:11:36
== END 2017-09-27 21:20 | disposition home or self-care (01) ==
LOC: ER 19:12
DX: R07.89 Other chest pain (principal); M79.1 Myalgia; E78.00 Pure hypercholesterolemia, unspecified; Z88.0 Allergy status to penicillin
CPT/HCPCS: 93005; 99285; 96372; 93010; J1885

== ENCOUNTER 2017-11-25 19:24 | Emergency (ER) | payer MEDICAID ==
[2017-11-25] MEDS ORDERED: BUTALB/ACETAMINOPHEN/CAFFEINE 1 TAB EACH PO ONE (20:31)
--- NOTE | 2017-11-25 20:31 | ER Document Report ---
ED Medical Screen (RME) - General Chief Complaint: Headache Stated Complaint: HEADACHE Time Seen by Provider: 11/25/17 20:29 Mode of Arrival: Ambulatory Information source: Patient Notes: Patient is an otherwise healthy 21-year-old female who presents with headache. Patient reports that the headache started at approximately 5 PM. Patient reports that this was a gradual onset and located on the left side of her head. Patient reports history of migraines in the past however this is worse than her usual headaches. Patient denies any nausea, vomiting, fever or any other associated symptoms. Exam: Patient nontoxic, alert, oriented. No nuchal rigidity. I have greeted and performed a rapid initial assessment of this patient. A comprehensive ED assessment and evaluation of the patient, analysis of test results and completion of the medical decision making process will be conducted by additional ED providers. Dictation of this chart was performed using voice recognition software; therefore, there may be some unintended grammatical errors. TRAVEL OUTSIDE OF THE [place] IN LAST 30 DAYS: No COUNTRY TRAVELED TO/FROM: [facility] - Related Data Allergies/Adverse Reactions: amoxicillin trihydrate [From Augmentin] Allergy (Verified 07/12/17 18:50) Potassium Clavulanate * [From Augmentin] Allergy (Verified 07/12/17 18:50) Past Medical History - Past Medical History Cardiac Medical History: Reports: Hx Hypercholesterolemia Pulmonary Medical History: Reports: Hx Asthma, Hx Bronchitis, Hx Pneumonia Neurological Medical History: Reports: Hx Migraine Renal/ Medical History: Denies: Hx Peritoneal Dialysis Past Surgical History: Reports: Hx Adenoidectomy, Hx Tonsillectomy - Immunizations Immunizations up to date: Yes Hx Diphtheria, Pertussis, Tetanus Vaccination: Yes Physical Exam - Vital signs Vitals: Temp Pulse Resp BP Pulse Ox 98.8 F 65 18 128/70 H 100 11/25/17 20:01 11/25/17 20:01 11/25/17 20:01 11/25/17 20:01 11/25/17 20:01 Course - Vital Signs Vital signs: Temp Pulse Resp BP Pulse Ox 98.8 F 65 18 128/70 H 100 11/25/17 20:01 11/25/17 20:01 11/25/17 20:01 11/25/17 20:01 11/25/17 20:01 Doctor's Discharge - Discharge Referrals: NIDA HUYNH MD [Primary Care Provider] - Follow up as needed
[2017-11-25] MEDS ORDERED: DIPHENHYDRAMINE HCL 25 MG CAPSULE PO ONE (20:32)
--- NOTE | 2017-11-25 23:20 | ER Document Report ---
ED General - General Chief Complaint: Headache Stated Complaint: HEADACHE Time Seen by Provider: 11/25/17 20:29 Mode of Arrival: Ambulatory Notes: Patient is an otherwise healthy 21-year-old female who presents with headache. Patient reports that the headache started at approximately 5 PM. Patient reports that this was a gradual onset and located on the left side of her head. Patient reports history of migraines in the past however this is worse than her usual headaches. Patient denies any nausea, vomiting, fever or any other associated symptoms. TRAVEL OUTSIDE OF THE [place] IN LAST 30 DAYS: No COUNTRY TRAVELED TO/FROM: [facility] - Related Data Allergies/Adverse Reactions: amoxicillin trihydrate [From Augmentin] Allergy (Verified 07/12/17 18:50) Potassium Clavulanate * [From Augmentin] Allergy (Verified 07/12/17 18:50) Past Medical History - General Information source: Patient - Social History Smoking Status: Never Smoker Frequency of alcohol use: None Drug Abuse: None Family History: CAD, CVA, DM, Hyperlipidemia, Hypertension, Malignancy Patient has suicidal ideation: No Patient has homicidal ideation: No - Past Medical History Cardiac Medical History: Reports: Hx Hypercholesterolemia Pulmonary Medical History: Reports: Hx Asthma, Hx Bronchitis, Hx Pneumonia Neurological Medical History: Reports: Hx Migraine Renal/ Medical History: Denies: Hx Peritoneal Dialysis Past Surgical History: Reports: Hx Adenoidectomy, Hx Section - 2018, Hx Tonsillectomy - Immunizations Immunizations up to date: Yes Hx Diphtheria, Pertussis, Tetanus Vaccination: Yes Review of Systems - Review of Systems Constitutional: No symptoms reported EENT: No symptoms reported Cardiovascular: No symptoms reported Respiratory: No symptoms reported Gastrointestinal: No symptoms reported Genitourinary: No symptoms reported Female Genitourinary: No symptoms reported Musculoskeletal: No symptoms reported Skin: No symptoms reported Hematologic/Lymphatic: No symptoms reported Neurological/Psychological: See HPI Physical Exam - Vital signs Vitals: Temp Pulse Resp BP Pulse Ox 98.8 F 65 18 128/70 H 100 11/25/17 20:01 11/25/17 20:01 11/25/17 20:01 11/25/17 20:01 11/25/17 20:01 - Notes Notes: PHYSICAL EXAMINATION: GENERAL: Well-appearing, well-nourished and in no acute distress. HEAD: Atraumatic, normocephalic. EYES: Pupils equal round and reactive to light, extraocular movements intact, conjunctiva are normal. ENT: Nares patent, oropharynx clear without exudates. Moist mucous membranes. NECK: Normal range of motion, supple without lymphadenopathy LUNGS: Breath sounds clear to auscultation bilaterally and equal. No wheezes rales or rhonchi. HEART: Regular rate and rhythm without murmurs ABDOMEN: Soft, nontender, nondistended abdomen. No guarding, no rebound. No masses appreciated. Female : deferred Musculoskeletal: Normal range of motion, no pitting or edema. No cyanosis. NEUROLOGICAL: Cranial nerves grossly intact. Normal speech, normal gait. Normal sensory, motor exams PSYCH: Normal mood, normal affect. SKIN: Warm, Dry, normal turgor, no rashes or lesions noted. Call discharged Course - Re-evaluation Re-evalutation: 11/25/17 23:19 Patient reports complete resolution of her headache after administration of Fioricet and Benadryl. Will discharge patient home at this time. - Vital Signs Vital signs: Temp Pulse Resp BP Pulse Ox 98.8 F 65 18 128/70 H 100 11/25/17 20:01 11/25/17 20:01 11/25/17 20:01 11/25/17 20:01 11/25/17 20:01 Discharge - Discharge Clinical Impression: Headache Qualifiers: Headache type: unspecified Headache chronicity pattern: episodic headache Intractability: not intractable Qualified Code(s): R51 - Headache Condition: Stable Disposition: HOME, SELF-CARE Additional Instructions: HEADACHE: The physician does not feel that the headache you are experiencing has a serious underlying cause. Most headaches are due to emotional stress, with resultant muscle tension (tension headache). Occasionally, headaches are secondary to changes in the blood vessels of the scalp (vascular headache and migraine headache). Sometimes, a headache is the first symptom of another developing illness, such as a viral infection. You have no evidence of stroke, bleeding, meningitis, or other serious cause of your headache. The treatment of headaches varies with the severity and cause of the pain. Not all headaches need pain shots. In fact, there is evidence that using narcotics for headaches may make them worse in the long run. The physician will determine the therapy that's in your best interest. If you develop a fever, if the headache is different from any you've previously experienced, or if the headache progressively worsens, then call your physician at once or go to the emergency room. USE OF DIPHENHYDRAMINE: Diphenhydramine (Benadryl) is an antihistamine and has been recommended to help treat your headache and to prevent side effects of other medications used to treat headaches. The medication can be repeated four times daily. Age Elixir (12.5 mg/tsp) 25 mg pill adult 1-2 tabs Antihistamines may cause drowsiness, especially with the first dose. Do not operate machinery or drive while under the effects of the medication. Do not combine the medication with alcohol, or with any other medication without talking to your doctor. ANTINAUSEA MEDICATION: You have been given a medication to suppress nausea and vomiting. This type of medication can be given as a shot, pill, or suppository. It will usually last for many hours. Pills and shots usually last six to eight hours, suppositories last about 12 hours. For the typical illness, only one or two doses of the medication may be necessary. Mild lightheadedness may occur. This type of medicine can cause drowsiness. Do not drive or operate dangerous machinery while under its influence. Do not mix with alcohol. See your doctor at once if you have muscle spasms or tightness, or uncontrollable motions (particularly of the neck, mouth, or jaw). Persistent vomiting or severe lightheadedness should also be evaluated by the physician. FOLLOW-UP CARE: If you have been referred to a physician for follow-up care, call the physician s office for an appointment as you were instructed or within the next two days. If you experience worsening or a significant change in your symptoms, notify the physician immediately or return to the Emergency Department at any time for re-evaluation. Prescriptions: Butalb/Acetaminophen/Caffeine [Fioricet (50-325-40 mg) Tablet] 1 tab PO Q4HP PRN #30 tab PRN Reason: Ondansetron [Zofran Odt 4 mg Tablet] 1 - 2 tab PO Q4H PRN #15 tab.rapdis PRN Reason: For Nausea/Vomiting Referrals: NIDA HUYNH MD [Primary Care Provider] - Follow up as needed
[2017-11-25 23:27] VITALS: BP 114/60
== END 2017-11-25 23:25 | disposition home or self-care (01) ==
LOC: ER 19:24
DX: R51 Headache (principal); J45.909 Unspecified asthma, uncomplicated; Z86.69 Personal history of other diseases of the nervous system and sense organs; Z88.0 Allergy status to penicillin
CPT/HCPCS: 99284; J3490 ×2

== ENCOUNTER 2018-06-24 18:39 | Emergency (ER) | payer OTHER ==
[2018-06-24 20:09] VITALS: BP 122/71
--- NOTE | 2018-06-24 20:25 | ER Document Report ---
ED ENT - General Chief Complaint: Sore Throat Stated Complaint: SORE THROAT Time Seen by Provider: 06/24/18 19:49 Primary Care Provider: NIDA HUYNH MD [Primary Care Provider] - Follow up as needed Mode of Arrival: Ambulatory Information source: Patient Notes: 22-year-old female presents to ED for complaint of sore throat times a week. Patient states there is pain with any swallowing as well as a postnasal drip and a cough. She states she has been taking Tylenol flu with little relief. Patient is alert oriented respirations regular and unlabored speaking in full sentences walks with a even steady gait. She states the pain is not bad at this time and mother insisted that she come in to get tested for strep. TRAVEL OUTSIDE OF THE [place] IN LAST 30 DAYS: No COUNTRY TRAVELED TO/FROM: [facility] Patient complains to provider of: Throat problem Onset: Last week Onset/Duration: Intermittent Quality of pain: Sharp Severity: Moderate Pain Level: 2 Context: Recent Illness Location of pain: Throat Associated symptoms: Chills, Congestion, Cough, Runny nose, Sinus pain, Sinus drainage, Sore throat, Swollen glands Similar symptoms previously: Yes Recently seen / treated by doctor: No - Related Data Allergies/Adverse Reactions: amoxicillin trihydrate [From Augmentin] Allergy (Verified 06/24/18 18:41) Potassium Clavulanate * [From Augmentin] Allergy (Verified 06/24/18 18:41) Past Medical History - General Information source: Patient - Social History Smoking Status: Former Smoker Frequency of alcohol use: None Drug Abuse: None Lives with: Parents Family History: CAD, CVA, DM, Hyperlipidemia, Hypertension, Malignancy Patient has suicidal ideation: No Patient has homicidal ideation: No - Past Medical History Cardiac Medical History: Reports: Hx Hypercholesterolemia Pulmonary Medical History: Reports: Hx Asthma, Hx Bronchitis, Hx Pneumonia EENT Medical History: Reports: Throat - Strep throat Neurological Medical History: Reports: Hx Migraine Endocrine Medical History: Reports: None Renal/ Medical History: Reports: None Malignancy Medical History: Reports: None GI Medical History: Reports: None Musculoskeletal Medical History: Reports None Skin Medical History: Reports None Psychiatric Medical History: Reports: None Traumatic Medical History: Reports: None Infectious Medical History: Reports: None Past Surgical History: Reports: Hx Adenoidectomy, Hx Section - 2018, Hx Tonsillectomy - Immunizations Immunizations up to date: Yes Hx Diphtheria, Pertussis, Tetanus Vaccination: Yes Review of Systems - Review of Systems Constitutional: Recent illness EENT: Nose congestion, Nose discharge, Sinus pressure, Sinus discharge, Throat pain Cardiovascular: No symptoms reported Respiratory: Cough Gastrointestinal: No symptoms reported Genitourinary: No symptoms reported Female Genitourinary: No symptoms reported Musculoskeletal: No symptoms reported Skin: No symptoms reported Hematologic/Lymphatic: No symptoms reported Neurological/Psychological: No symptoms reported -: Yes All other systems reviewed and negative Physical Exam - Vital signs Vitals: Temp Pulse Resp BP Pulse Ox 98.2 F 82 18 119/89 H 100 06/24/18 18:53 06/24/18 18:53 06/24/18 18:53 06/24/18 18:53 06/24/18 18:53 Interpretation: Normal. No: Hypertensive - 122/71 - General General appearance: Appears well, Alert - HEENT Head: Normocephalic, Atraumatic Eyes: Normal Pupils: PERRL Ears: Normal External canal: Normal Tympanic membrane: Normal Sinus: Normal Nasal: Purulent discharge, Swelling Mouth/Lips: Normal Mucous membranes: Normal Pharynx: Erythema, Post nasal drainage. No: Exudate Neck: Normal - Respiratory Respiratory status: No respiratory distress Chest status: Nontender Breath sounds: Normal Chest palpation: Normal - Cardiovascular Rhythm: Regular Heart sounds: Normal auscultation Murmur: No - Abdominal Inspection: Normal Distension: No distension Bowel sounds: Normal Tenderness: Nontender Organomegaly: No organomegaly - Back Back: Normal, Nontender - Extremities General upper extremity: Normal inspection, Nontender, Normal color, Normal ROM, Normal temperature General lower extremity: Normal inspection, Nontender, Normal color, Normal ROM, Normal temperature, Normal weight bearing. No: Rhona's sign - Neurological Neuro grossly intact: Yes Cognition: Normal Orientation: AAOx4 [place] Coma Scale Eye Opening: Spontaneous [place] Coma Scale Verbal: Oriented [place] Coma Scale Motor: Obeys Commands [place] Coma Scale Total: 15 Speech: Normal Motor strength normal: LUE, RUE, LLE, RLE Sensory: Normal - Psychological Associated symptoms: Normal affect, Normal mood - Skin Skin Temperature: Warm Skin Moisture: Dry Skin Color: Normal Course - Re-evaluation Re-evalutation: 06/24/18 20:25 Patient that has no tonsillar hypertrophy because she has had a tonsils and adenoids removed. She does have a lot of mucus in the back of her throat as well as a upper respiratory infection. Patient states that her mother told her she needed to come to the emergency room because of her throat being so sore. Patient states that the pain is not sufficient that she needs Tylenol or Motrin at this time. Both were offered. - Vital Signs Vital signs: Temp Pulse Resp BP Pulse Ox 98.2 F 82 18 122/71 100 06/24/18 18:53 06/24/18 18:53 06/24/18 18:53 06/24/18 19:58 06/24/18 18:53 Discharge - Discharge Clinical Impression: Viral sore throat URI (upper respiratory infection) Qualifiers: URI type: unspecified viral URI Qualified Code(s): J06.9 - Acute upper respiratory infection, unspecified Condition: Stable Disposition: HOME, SELF-CARE Additional Instructions: SORE THROAT: Sore throats may be caused by viruses, bacteria, or fungi. Most are due to a virus, and must get better on their own. Bacterial sore throats, particularly those due to "strep," need treatment with antibiotics. If an antibiotic is prescribed, be sure to take the medication for a full 10 days. Failure to take the antibiotic can result in complications such as rheumatic fever. Sometimes, an injection of antibiotics is given instead of pills or liquid. This single "shot" is equal in effectiveness to the oral medication. To relieve symptoms, take acetaminophen for pain. Sip clear liquids frequently, or eat popsicles or ice chips. Anesthetic sprays or lozenges may help. Make sure the air in the room is not too dry. Avoid using decongestants or antihistamines. Call the doctor if there is no improvement in two days, or if you have difficulty breathing, increasing throat pain, high fever, rash, or frequent vomiting. UPPER RESPIRATORY ILLNESS: You have a viral infection of the respiratory passages -- a "cold." This common infection causes nasal congestion, drainage, and often sore throat and cough. It is highly contagious. The disease usually lasts about 10 to 14 days. There is no "cure" for the viral infection -- it must run its course. If there is a complication, such as bacterial infection in the nose, sinuses, middle ear, or bronchial tubes, antibiotics may be required. The antibiotics won't affect the virus. Drink plenty of fluids. A humidifier may help. An expectorant medication or decongestant may make you more comfortable. Use acetaminophen or ibuprofen for fever or aches. See the doctor if fever persists over two days, if there is any significant worsening of your symptoms, or if you simply fail to improve as expected. USE OF ACETAMINOPHEN (Tylenol): Acetaminophen may be taken for pain relief or fever control. It's much safer than aspirin, offering a wider range of "safe" dosages. It is safe during . Some brand names are Tylenol, Panadol, Datril, Anacin 3, Tempra, and Liquiprin. Acetaminophen can be repeated every four hours. The following are maximum recommended dosages: >89 pounds or adults 650 mg to 900 mg Acetaminophen can be repeated every four hours. Maximum dose not to exceed 4000 mg a day. Try Flonase nasal spray to decrease the nasal congestion and drainage. Try Chloraseptic spray to decrease the pain. Try salt and soda solution gargles to reduce the amount of nasal drainage which will reduce the pain in the throat. Try throat lozenges and follow-up with primary doctor. Salt and soda solution 1 quart of water 1 tablespoon of salt 1 teaspoon of baking soda Mixed 3 ingredients together and boil for 1 minute Placed in a covered quart jar Use 1/2 ounce of cold solution to gargle 3 times a day FOLLOW-UP CARE: If you have been referred to a physician for follow-up care, call the physicians office for an appointment as you were instructed or within the next two days. If you experience worsening or a significant change in your symptoms, notify the physician immediately or return to the Emergency Department at any time for re-evaluation. Forms: Return to Work Referrals: NIDA HUYNH MD [Primary Care Provider] - Follow up as needed
== END 2018-06-24 21:08 | disposition home or self-care (01) ==
LOC: ER 18:39
DX: J02.9 Acute pharyngitis, unspecified (principal); J06.9 Acute upper respiratory infection, unspecified; E78.00 Pure hypercholesterolemia, unspecified
CPT/HCPCS: 87070; 87880; 99283

== ENCOUNTER 2020-05-12 20:28 | Emergency (ER) | payer MEDICAID ==
[2020-05-12 21:24] VITALS: BP 132/84
[2020-05-12] MEDS ORDERED: KETOROLAC TROMETHAMINE INJ/PF 30 MG/1 ML SDV IM ONE (21:28)
[2020-05-12] MEDS ORDERED: DEXAMETHASONE SOD PHOS INJ 10 MG/1 ML VIAL IM ONE (21:28)
[2020-05-12] MEDS ORDERED: METOCLOPRAMIDE HCL INJ/PF 10 MG/2 ML SDV IM ONE (21:28)
--- NOTE | 2020-05-12 21:34 | ER Document Report ---
ED Headache - General Chief Complaint: Headache Stated Complaint: HEADACHE Time Seen by Provider: 05/12/20 21:17 Primary Care Provider: TED KAT FNP [Primary Care Provider] - Follow up as needed Mode of Arrival: Ambulatory Information source: Patient TRAVEL OUTSIDE OF THE [place] IN LAST 30 DAYS: No - HPI Patient complains to provider of: Headache Notes: Patient here with complaints of headache. The patient states she woke up this morning with this headache. It was not sudden onset, thunderclap in nature. The headache is progressively worsened over the day. She has had headaches similar to this in the past. She had a head CT in the past that was unremarkable. She has seen neurology in the past as well. She denies any recent head injuries or falls. No blood thinning medications. She denies blurred or lost vision. No unilateral numbness, tingling, weakness. Headache is moderate to severe, constant, worse with lights and loud sounds, nothing makes it better. She denies fever or neck stiffness. No chest pain or shortness of breath. No abdominal pain. No nausea, vomiting, diarrhea. No dysuria or hematuria. No rash. No other complaints at this time. - Related Data Allergies/Adverse Reactions: amoxicillin trihydrate [From Augmentin] Allergy (Verified 06/24/18 18:41) Potassium Clavulanate * [From Augmentin] Allergy (Verified 06/24/18 18:41) Home Medications: doxycycline monohydrate for hydrianitis Past Medical History - Social History Smoking Status: Current Every Day Smoker Chew tobacco use (# tins/day): No Frequency of alcohol use: Occasional Drug Abuse: None Family History: CAD, CVA, DM, Hyperlipidemia, Hypertension, Malignancy - Past Medical History Cardiac Medical History: Reports: Hx Hypercholesterolemia Pulmonary Medical History: Reports: Hx Asthma, Hx Bronchitis, Hx Pneumonia Neurological Medical History: Reports: Hx Migraine Renal/ Medical History: Denies: Hx Peritoneal Dialysis Past Surgical History: Reports: Hx Adenoidectomy, Hx Section - 2018, Hx Tonsillectomy - Immunizations Immunizations up to date: Yes Hx Diphtheria, Pertussis, Tetanus Vaccination: Yes Review of Systems - Review of Systems -: Yes All other systems reviewed and negative Physical Exam - Vital signs Vitals: Temp Pulse Resp BP Pulse Ox 98.9 F 93 15 131/119 H 93 05/12/20 20:45 01/07/21 20:45 05/12/20 20:45 05/12/20 20:45 05/12/20 20:45 - Notes Notes: GENERAL: alert, cooperative, nontoxic, no distress. HEAD: normocephalic, atraumatic EYES: conjunctiva pink without discharge, no external redness or swelling. Pupils are equal, round, reactive to light. Extraocular muscles intact bilaterally. EARS: no external swelling, no external redness NOSE: atraumatic, no external swelling MOUTH/THROAT: mucous membranes moist and pink, posterior pharynx without erythema, swelling, exudate. No trismus or drooling. NECK: soft, supple, full range of motion, no meningismus. CHEST: no distress, lungs clear and equal throughout. No wheezing, rales, rhonchi. CARDIAC: regular rate and rhythm, no murmur BACK: full range of motion EXTREMITIES: full range of motion of all extremities. No redness, no swelling. NEURO: alert and oriented x 3, cranial nerves II through XII are grossly intact. Upper and lower extremities are equal throughout. Normal sensation. No focal deficits, full range of motion of all extremities. normal finger to nose. PYSCH: appropriate mood, affect. Patient is cooperative. SKIN: pink, warm, dry, no rash. Course - Re-evaluation Re-evalutation: 05/12/20 21:30 Patient resting comfortably at this time. I have gone over plan with the patient. Questions been answered. Patient will be discharged from triage. Patient is nontoxic-appearing with stable vitals. Here with complaints of headache. She states she woke up with this headache this morning. It was not thunderclap or sudden onset in nature. No sign of subarachnoid hemorrhage, intracranial hemorrhage or meningitis. Patient has a history of headaches and this feels similar to headache she has had in the past. No fever or neck stiffness. She has a nonfocal neurological exam. Overall she looks extremely well. Her vital signs are stable. Repeat blood pressure is 138/84. This headache certainly has migraine type features. This point the patient will be given a shot of Toradol, Reglan and Decadron here in the emergency department. She drove her self here so she was instructed to take 50 mg of Benadryl orally when she gets home and go lie down in a dark cool room and go to sleep. She continues to have headaches, I believe the patient could follow-up with neurology if they become chronic. She was instructed to follow-up sooner if she develops any severe worsening pain, high fever, persistent vomiting, neck stiffness, numbness, tingling, weakness, any further concerns. The patient's emergency department workup and current diagnosis were explained to the patient and or family. Follow-up instructions were provided. Medications if prescribed were discussed. Instructions for when to return to the emergency department including specific worrisome symptoms were discussed with the patient and/or family. - Vital Signs Vital signs: Temp Pulse Resp BP Pulse Ox 98.9 F 93 15 132/84 H 93 05/12/20 20:45 05/12/20 20:45 05/12/20 20:45 05/12/20 21:24 05/12/20 20:45 - Laboratory Results Critical Laboratory Results Reviewed: No Critical Results - Radiology Results Critical Radiology Results Reviewed: No Critical Results Discharge - Discharge Clinical Impression: Headache Qualifiers: Headache type: unspecified Headache chronicity pattern: acute headache Intractability: not intractable Qualified Code(s): R51.9 - Headache, unspecified Condition: Stable Disposition: HOME, SELF-CARE Instructions: Headache ([facility]) Additional Instructions: Go home and take 50 mg of Benadryl orally. Lie down in a dark quiet cool room and go to sleep. Follow-up with neurology if you continue to have headaches. Follow-up sooner for worsening pain, high fever, neck stiffness, numbness, tingling, weakness, persistent vomiting, or any further concerns. Referrals: TED KAT FNP [Primary Care Provider] - Follow up as needed KIKI ALLEN MD [NO LOCAL MD] - Follow up as needed
== END 2020-05-12 22:30 | disposition home or self-care (01) ==
LOC: ER 20:28
DX: R51.9 Headache, unspecified (principal); J45.909 Unspecified asthma, uncomplicated; F17.200 Nicotine dependence, unspecified, uncomplicated; L73.2 Hidradenitis suppurativa; Z79.2 Long term (current) use of antibiotics; Z88.0 Allergy status to penicillin
CPT/HCPCS: 99284; 96372; J1885; J2765; J1100